=== PATIENT | female | born 1960 | race Caucasian/White ===

== ENCOUNTER 2019-03-30 17:02 | Emergency (ER) | payer OTHER ==
[2019-03-30 17:10] VITALS: BP 179/83; TEMP 97.9
[2019-03-30] MEDS: IPRATROPIUM-ALBUTEROL 3 ML NEB INHALATION STA (17:59)
[2019-03-30 18:01] VITALS: RESP 18
--- NOTE | 2019-03-30 18:05 | XR ---
EXAMINATION TYPE: XR chest 2V DATE OF EXAM: 03/30/2019 COMPARISON: NONE HISTORY: Cough and congestion TECHNIQUE: Frontal and lateral views of the chest are obtained. FINDINGS: Heart and mediastinum are normal. Lungs are clear. Diaphragm is normal. Bony thorax is nor mal. There are chest leads. IMPRESSION: Normal chest.
[2019-03-30 18:09] VITALS: PULSE 68
[2019-03-30] MEDS ORDERED: methylPREDNISolone SOD SUCCI 125 MG/2 ML VIAL IV STA (18:13)
[2019-03-30 18:28] LABS: Basophils # (A) 0.1 k/uL (0-0.2); Basophils % (A) 1 %; Eosinophils # (A) 0.2 k/uL (0-0.7); Eosinophils % (A) 1 %; HCT 47.6 % (34.0-46.0); HGB 15.4 gm/dL (11.4-16.0); Lymphocytes % (A) 15 %; MCH 33.4 pg (25.0-35.0); MCHC 32.5 g/dL (31.0-37.0); Macrocytosis Slight; Mean Platelet Volume 6.2; Monocytes # (A) 0.6 k/uL (0-1.0); Monocytes % (A) 5 %; Neutrophils # (A) 10.4 k/uL (1.3-7.7); Neutrophils % (A) 78 %; Platelet Count 307 k/uL (150-450); RBC 4.62 m/uL (3.80-5.40); RDW 13.8 % (11.5-15.5); WBC 13.3 k/uL (3.8-10.6)
[2019-03-30 18:35] LABS: ALT 26 U/L (9-52); AST 25 U/L (14-36); African American GFR (CKD) >90 (>60 ml/min/1.73 sqM); Alkaline Phosphatase 75 U/L (38-126); Anion Gap 7 mmol/L; Blood Urea Nitrogen 6 mg/dL (7-17); Calcium 9.3 mg/dL (8.4-10.2); Carbon Dioxide 30 mmol/L (22-30); Chloride 102 mmol/L (98-107); Glucose 103 mg/dL (74-99); Potassium 4.2 mmol/L (3.5-5.1); Sodium 139 mmol/L (137-145); Total Bilirubin 0.5 mg/dL (0.2-1.3); Total Protein 6.6 g/dL (6.3-8.2)
--- NOTE | 2019-03-30 18:37 | ED ---
General Adult HPI - General Chief complaint: Upper Respiratory Infection Stated complaint: Cough, SOB Time Seen by Provider: 03/30/19 17:13 Source: patient, family, RN notes reviewed, old records reviewed Mode of arrival: ambulatory Limitations: no limitations - History of Present Illness Initial comments: 59-year-old female patient presents to ED with chief complaint of cough congestion shortness of breath. Patient reports has been going on for approximately one month. Patient denies any chest pain. Reports that she does feel somewhat generalized weakness. Reports that she has a daily smoker. Denies any history of COPD. Denies any other complaints. Systemic: Pt denies fatigue, fever/chills, rash. Pt denies weakness, night sweat s, weight loss. Neuro: Pt denies headache, visual disturbances, syncope or pre-syncope. HEENT: Pt denies ocular discharge or irritation, otalgia, rhinorrhea, pharyngitis or notable lymphadenopathy. Cardiopulmonary: Pt denies chest pain, heart palpitations, dyspnea on exertion. Abdominal/GI: Pt denies abdominal pain, n/v/d. : Pt denies dysuria, burning w/ urination, frequency/urgency. Denies new onset urinary or bowel incontinence. MSK: Pt denies myalgia, loss of strength or function in extremities. Neuro: Pt denies new onset weakness, paresthesias. - Related Data Home Medications Medication Instructions Recorded Confirmed Carbidopa-Levodopa 25-100 mg 1 tab PO HS 07/25/14 07/31/14 [Sinemet 25-100 mg] Enalapril [Vasotec] 10 mg PO HS 07/25/14 07/31/14 Ranitidine HCl [Zantac] 75 mg PO HS PRN 07/25/14 07/31/14 Albuterol Inhaler [Ventolin Hfa 2 puff INHALATION Q6HR PRN 08/01/14 08/01/14 Inhaler] Previous Rx's Medication Instructions Recorded HYDROcodone/APAP 7.5-325MG [[place] 1 - 2 each PO Q4H PRN #90 tab 08/02/14 7.5-325] Warfarin [Coumadin] 2 tab PO DAILY #30 tab 08/02/14 Albuterol Inhaler [Ventolin Hfa 1 - 2 puff INHALATION Q4-6H PRN #1 03/30/19 Inhaler] inhaler Azithromycin [Zithromax Z-pack] 0 mg PO DIRECTED #6 tab 03/30/19 predniSONE 50 mg PO DAILY #4 tab 03/30/19 Allergies Allergy/AdvReac Type Severity Reaction Status Date / Time No Known Allergies Allergy Verified 03/30/19 17:10 Review of Systems ROS Statement: Those systems with pertinent positive or pertinent negative responses have been documented in the HPI. ROS Other: All systems not noted in ROS Statement are negative. Past Medical History Past Medical History: GERD/Reflux, Hypertension, Osteoarthritis (OA) Additional Past Medical History / Comment(s): HISTORY FROM DR. MURILLO STATES DIABETIC, PATIENT STATES "NOT". POSITIVE FOR LUPUS ANTICOAGULANT and double heterozygous for MTHFR gene mutation. History of Any Multi-Drug Resistant Organisms: None Reported Past Surgical History: Cholecystectomy, Hysterectomy, Orthopedic Surgery Additional Past Surgical History / Comment(s): BILATERAL EYE SURGERY (TIGHTENING OF MUSCLES). LEFT KNEE ARTHO Past Anesthesia/Blood Transfusion Reactions: Postoperative Nausea & Vomiting (PONV) Past Psychological History: No Psychological Hx Reported Smoking Status: Current every day smoker Past Alcohol Use History: None Reported Past Drug Use History: None Reported - Past Family History Mother Family Medical History: Diabetes Mellitus, Hypertension General Exam - General Exam Comments Initial Comments: Constitutional: NAD, AOX3, Pt has pleasant affect. HEENT: NC/AT, trachea midline, neck supple, no lymphadenopathy. Posterior pharynx non erythematous, without exudates. External ears appear normal, without discharge. Mucous membranes moist. Eyes PERRLA, EOM intact. There is no scleral icterus. No pallor noted. Cardiopulmonary: RRR, no murmurs, rubs or gallops, no JVD noted. Wheezing noted in anterior lung hdz, much improved after breathing treatment.. No peripheral edema. Abdominal exam: Abdomen soft and non-distended. Abdomen non-tender to palpation in all 4 quadrants. Bowel sounds active in LLQ. No hepatosplenomegaly. No ecchymosis Neuro: CN II-XII grossly intact. No nuchal rigidity. No raccon eyes, no laura sign, no hemotympanum. No cervical spinal tenderness. MSK: No posterior calf tenderness bilaterally, homans sign negative bilaterally. Posterior tibialis and radial pulse +2 bilaterally. Sensation intact in upper and lower extremities. Full active ROM in upper and lower extremities, 5/5 stregnth. Limitations: no limitations Course Vital Signs 03/30/19 03/30/19 03/30/19 17:08 18:00 18:09 Temperature 97.9 F Pulse Rate 79 74 68 Respiratory 22 18 18 Rate Blood Pressure 179/83 O2 Sat by Pulse 94 L Oximetry Medical Decision Making - Medical Decision Making 59-year-old female patient presents to ED with chief complaint of cough congestion shortness of breath. Patient reports has been going on for approximately one month. Patient denies any chest pain. Reports that she does feel somewhat generalized weakness. Reports that she has a daily smoker. Denies any history of COPD. Denies any other complaints. Patient will signs are stable, afebrile. Physical exam. Wheezing in anterior lung hdz. Breathing treatment improved wheezing considerably. Laboratory investigations revealed mild leukocytosis of 13.3. Otherwise nonpresent. D-dimer negative. Troponin negative. EKG nonischemic. She is experiencing bronchitis syndrome. Patient discharged with steroids and azithromycin Z-Mychal. Will follow up with primary care provider with close outpatient follow-up. Smoking cessation was discussed. Case discussed with Dr. Bowman. - Lab Data Result diagrams: 03/30/19 18:10 03/30/19 18:10 Lab Results 03/30/19 03/30/19 03/30/19 Range/Units 18:10 18:10 18:10 WBC 13.3 H (3.8-10.6) k/uL RBC 4.62 (3.80-5.40) m/uL Hgb 15.4 (11.4-16.0) gm/dL Hct 47.6 H (34.0-46.0) % MCV 103.0 H (80.0-100.0) fL MCH 33.4 (25.0-35.0) pg MCHC 32.5 (31.0-37.0) g/dL RDW 13.8 (11.5-15.5) % Plt Count 307 (150-450) k/uL Neutrophils % 78 % Lymphocytes % 15 % Monocytes % 5 % Eosinophils % 1 % Basophils % 1 % Neutrophils # 10.4 H (1.3-7.7) k/uL Lymphocytes # 2.0 (1.0-4.8) k/uL Monocytes # 0.6 (0-1.0) k/uL Eosinophils # 0.2 (0-0.7) k/uL Basophils # 0.1 (0-0.2) k/uL Macrocytosis Slight D-Dimer (<0.60) mg/L FEU Sodium 139 (137-145) mmol/L Potassium 4.2 (3.5-5.1) mmol/L Chloride 102 (98-107) mmol/L Carbon Dioxide 30 (22-30) mmol/L Anion Gap 7 mmol/L BUN 6 L (7-17) mg/dL Creatinine 0.46 L (0.52-1.04) mg/dL Est GFR (CKD-EPI)AfAm >90 (>60 ml/min/1.73 sqM) Est GFR (CKD-EPI)NonAf >90 (>60 ml/min/1.73 sqM) Glucose 103 H (74-99) mg/dL Plasma Lactic Acid [place] (0.7-2.0) mmol/L Calcium 9.3 (8.4-10.2) mg/dL Total Bilirubin 0.5 (0.2-1.3) mg/dL AST 25 (14-36) U/L ALT 26 (9-52) U/L Alkaline Phosphatase 75 (38-126) U/L Troponin I <0.012 (0.000-0.034) ng/mL Total Protein 6.6 (6.3-8.2) g/dL Albumin 4.0 (3.5-5.0) g/dL 03/30/19 03/30/19 Range/Units 18:10 18:10 WBC (3.8-10.6) k/uL RBC (3.80-5.40) m/uL Hgb (11.4-16.0) gm/dL Hct (34.0-46.0) % MCV (80.0-100.0) fL MCH (25.0-35.0) pg MCHC (31.0-37.0) g/dL RDW (11.5-15.5) % Plt Count (150-450) k/uL Neutrophils % % Lymphocytes % % Monocytes % % Eosinophils % % Basophils % % Neutrophils # (1.3-7.7) k/uL Lymphocytes # (1.0-4.8) k/uL Monocytes # (0-1.0) k/uL Eosinophils # (0-0.7) k/uL Basophils # (0-0.2) k/uL Macrocytosis D-Dimer 0.28 (<0.60) mg/L FEU Sodium (137-145) mmol/L Potassium (3.5-5.1) mmol/L Chloride (98-107) mmol/L Carbon Dioxide (22-30) mmol/L Anion Gap mmol/L BUN (7-17) mg/dL Creatinine (0.52-1.04) mg/dL Est GFR (CKD-EPI)AfAm (>60 ml/min/1.73 sqM) Est GFR (CKD-EPI)NonAf (>60 ml/min/1.73 sqM) Glucose (74-99) mg/dL Plasma Lactic Acid [place] 1.8 (0.7-2.0) mmol/L Calcium (8.4-10.2) mg/dL Total Bilirubin (0.2-1.3) mg/dL AST (14-36) U/L ALT (9-52) U/L Alkaline Phosphatase (38-126) U/L Troponin I (0.000-0.034) ng/mL Total Protein (6.3-8.2) g/dL Albumin (3.5-5.0) g/dL - EKG Data -: EKG Interpreted by Me (and Dr. Bowman) EKG Comments: Ventricular rate 74,. Full 116, QRS 84, QT/QTc 412 shows 47. Also some Robaxin, septal infarct agent determined. Here of abnormality consider anterior ischemia. Abnormal EKG. No concern for acute ischemia at this time. Disposition Clinical Impression: Bronchitis Disposition: HOME SELF-CARE Condition: Stable Instructions (If sedation given, give patient instructions): Acute Bronchitis (ED), How to Stop Smoking (ED) Additional Instructions: Follow-up with primary care provider tomorrow. Take medication as directed. Return to ER if condition worsens. Prescriptions: predniSONE 50 mg PO DAILY #4 tab Albuterol Inhaler [Ventolin Hfa Inhaler] 1 - 2 puff INHALATION Q4-6H PRN #1 inhaler PRN Reason: Cough Azithromycin [Zithromax Z-pack] 0 mg PO DIRECTED #6 tab Is patient prescribed a controlled substance at d/c from ED?: No Referrals: Frocillo,Rui, DO [Primary Care Provider] - 1-2 days
[2019-03-30] MEDS ORDERED: AZITHROMYCIN 500 MG TAB PO STA (19:24)
== END 2019-03-30 19:35 | disposition home or self-care (01) ==
LOC: EC 17:02
DX: J40 Bronchitis, not specified as acute or chronic (principal); R53.1 Weakness; F17.200 Nicotine dependence, unspecified, uncomplicated; Z71.6 Tobacco abuse counseling; Z79.899 Other long term (current) drug therapy
CPT/HCPCS: 36415; 94640; 93005; 85379; 80053; 83605; 84484; 85025; 71046; 96374; 99284; J2930

== ENCOUNTER 2019-07-04 18:39 | Emergency (ER) | payer OTHER ==
[2019-07-04 19:41] VITALS: RESP 18; TEMP 97.9
[2019-07-04] MEDS ORDERED: ONDANSETRON 4 MG/2 ML VIAL IVP STA (20:41)
[2019-07-04] MEDS ORDERED: SODIUM CHLORIDE 0.9% 500 ML 500 ML IV ONE (20:41)
[2019-07-04] MEDS ORDERED: SODIUM CHLORIDE 0.9% 1,000 ML IV ONE (20:41)
[2019-07-04] MEDS ORDERED: FAMOTIDINE 20 MG/2 ML VIAL IV STA (20:41)
--- NOTE | 2019-07-04 21:08 | XR ---
EXAMINATION TYPE: XR chest 2V DATE OF EXAM: 07/04/2019 COMPARISON: 03/30/2019 HISTORY: Cough TECHNIQUE: FINDINGS: Heart and mediastinum are normal. Lungs are clear of infiltrate. There are no hilar masses. Bony thorax is intact. Pulmonary vascularity is normal. IMPRESSION: No active cardiopulmonary disease. No change.
[2019-07-04 21:24] LABS: Basophils % (A) 0 %; Eosinophils % (A) 0 %; HCT 49.7 % (34.0-46.0); HGB 16.9 gm/dL (11.4-16.0); Lymphocytes # (A) 1.1 k/uL (1.0-4.8); Lymphocytes % (A) 9 %; MCH 32.4 pg (25.0-35.0); MCHC 33.9 g/dL (31.0-37.0); MCV 95.4 fL (80.0-100.0); Mean Platelet Volume 8.3; Monocytes # (A) 0.8 k/uL (0-1.0); Monocytes % (A) 6 %; Neutrophils # (A) 10.5 k/uL (1.3-7.7); Neutrophils % (A) 82 %; Platelet Count 191 k/uL (150-450); RBC 5.21 m/uL (3.80-5.40); RDW 13.7 % (11.5-15.5); WBC 12.8 k/uL (3.8-10.6)
[2019-07-04 21:31] LABS: ALT 21 U/L (4-34); AST 41 U/L (14-36); African American GFR (CKD) >90 (>60 ml/min/1.73 sqM); Albumin 3.9 g/dL (3.5-5.0); Alkaline Phosphatase 102 U/L (38-126); Amylase 43 U/L (30-110); Anion Gap 9 mmol/L; Appearance,Urine Cloudy (Clear); Bacteria,Urine Few /hpf; Blood Urea Nitrogen 20 mg/dL (7-17); Calcium 8.9 mg/dL (8.4-10.2); Carbon Dioxide 24 mmol/L (22-30); Chloride 99 mmol/L (98-107); Color,Urine Amber; Glucose 146 mg/dL (74-99); Mucus,Urine Many /hpf; Non-African American GFR(CKD) >90 (>60 ml/min/1.73 sqM); Potassium 3.6 mmol/L (3.5-5.1); RBC,Urine 8 /hpf (0-5); Sodium 132 mmol/L (137-145); Squamous Epithelial Cell,Urine 14 /hpf (0-4); Total Bilirubin 0.6 mg/dL (0.2-1.3); Total Protein 6.8 g/dL (6.3-8.2); WBC,Urine 31 /hpf (0-5)
[2019-07-04 21:32] LABS: Bilirubin,Urine 4+ (Negative); Blood,Urine Large (Negative); Glucose,Urine (UA) Negative (Negative); Ketones,Urine Negative (Negative); Leukocyte Esterase,Urine Small (Negative); Nitrite,Urine Negative (Negative); Protein,Urine 3+ (Negative)
[2019-07-04] MEDS ORDERED: cefTRIAXone IN SWFI 1,000 MG/10 ML SYRINGE IVP STA (21:57)
[2019-07-04 22:16] VITALS: BP 142/76; PULSE 106
[2019-07-04] MEDS ORDERED: ONDANSETRON 4 MG ODT STARTER PACK 2 TAB BTL PO STA (22:37)
--- NOTE | 2019-07-04 22:37 | ED ---
Nausea/Vomiting/Diarrhea HPI - General Chief complaint: Nausea/Vomiting/Diarrhea Stated complaint: vomiting/poss dehydration Time Seen by Provider: 07/04/19 20:14 Source: patient Mode of arrival: ambulatory Limitations: no limitations - History of Present Illness Initial comments: 59-year-old female patient presents to the emergency department today for evaluation of possible dehydration. Patient states that she's been sick for a little over a week with upper respiratory symptoms including cough and congestion. Patient did have fever and chills with the upper respiratory symptoms. She believes the fevers have resolved. States that 3 days ago she developed vomiting and diarrhea. Patient states that she's been unable to keep down any food or fluids for the last 3 days. Patient states today she feels wobbly and dizzy. States that she feels like she may be dehydrated. States she is having some dysuria. She is also reporting right flank pain. She denies any hematochezia, melena, hematemesis with her symptoms. Denies any significant ab dominal pain. Patient denies any recent rash, shortness breath, chest pain, back pain, numbness, tingling, dizziness, weakness, headache, visual changes, or any other complaints. - Related Data Home Medications Medication Instructions Recorded Confirmed Carbidopa-Levodopa 25-100 mg 1 tab PO HS 07/25/14 07/31/14 [Sinemet 25-100 mg] Enalapril [Vasotec] 10 mg PO HS 07/25/14 07/31/14 Ranitidine HCl [Zantac] 75 mg PO HS PRN 07/25/14 07/31/14 Albuterol Inhaler [Ventolin Hfa 2 puff INHALATION Q6HR PRN 08/01/14 08/01/14 Inhaler] Previous Rx's Medication Instructions Recorded HYDROcodone/APAP 7.5-325MG [[place] 1 - 2 each PO Q4H PRN #90 tab 08/02/14 7.5-325] Warfarin [Coumadin] 2 tab PO DAILY #30 tab 08/02/14 Albuterol Inhaler [Ventolin Hfa 1 - 2 puff INHALATION Q4-6H PRN #1 03/30/19 Inhaler] inhaler Azithromycin [Zithromax Z-pack] 0 mg PO DIRECTED #6 tab 03/30/19 predniSONE 50 mg PO DAILY #4 tab 03/30/19 Cephalexin [Keflex] 500 mg PO Q6HR #40 cap 07/04/19 Ondansetron [Zofran ODT] 4 mg PO Q8HR PRN #10 tab 07/04/19 Allergies Allergy/AdvReac Type Severity Reaction Status Date / Time No Known Allergies Allergy Verified 03/30/19 17:10 Review of Systems ROS Statement: Those systems with pertinent positive or pertinent negative responses have been documented in the HPI. ROS Other: All systems not noted in ROS Statement are negative. Past Medical History Past Medical History: GERD/Reflux, Hypertension, Osteoarthritis (OA) Additional Past Medical History / Comment(s): HISTORY FROM DR. MURILLO STATES DIABETIC, PATIENT STATES "NOT". POSITIVE FOR LUPUS ANTICOAGULANT and double heterozygous for MTHFR gene mutation. History of Any Multi-Drug Resistant Organisms: None Reported Past Surgical History: Cholecystectomy, Hysterectomy, Orthopedic Surgery Additional Past Surgical History / Comment(s): BILATERAL EYE SURGERY (TIGHTENING OF MUSCLES). LEFT KNEE ARTHO Past Anesthesia/Blood Transfusion Reactions: Postoperative Nausea & Vomiting (PONV) Past Psychological History: No Psychological Hx Reported Smoking Status: Current every day smoker Past Alcohol Use History: None Reported Past Drug Use History: None Reported - Past Family History Mother Family Medical History: Diabetes Mellitus, Hypertension General Exam Limitations: no limitations General appearance: alert, in no apparent distress, other (This is a well- developed, well-nourished adult female patient in no acute distress. Vital s igns upon presentation are temperature 97.9F, pulse 97, respirations 18, blood pressure 132/86, pulse ox 100% on room air.) Eye exam: Present: normal appearance, PERRL, EOMI. Absent: scleral icterus, conjunctival injection, periorbital swelling ENT exam: Present: normal exam, normal oropharynx, mucous membranes moist Respiratory exam: Present: normal lung sounds bilaterally. Absent: respiratory distress, wheezes, rales, rhonchi, stridor Cardiovascular Exam: Present: regular rate, normal rhythm, normal heart sounds. Absent: systolic murmur, diastolic murmur, rubs, gallop, clicks GI/Abdominal exam: Present: soft, normal bowel sounds. Absent: distended, tenderness, guarding, rebound, rigid Back exam: Present: normal inspection. Absent: CVA tenderness (R), CVA tenderness (L) Neurological exam: Present: alert, oriented X3, CN II-XII intact Psychiatric exam: Present: normal affect, normal mood Skin exam: Present: warm, dry, intact, normal color. Absent: rash Course Vital Signs 07/04/19 07/04/19 07/04/19 19:39 22:16 22:42 Temperature 97.9 F 97.9 F Pulse Rate 97 106 H 106 H Respiratory 18 18 18 Rate Blood Pressure 132/86 142/76 142/76 O2 Sat by Pulse 100 96 96 Oximetry Medical Decision Making - Medical Decision Making 59-year-old female patient presents to the emergency department today for evaluation of vomiting and diarrhea. Physical examination did reveal clear equal lung sounds. No respiratory distress. Abdomen was soft and nontender. Patient is afebrile. Vital signs showed no major abnormalities. Chest x-ray showed no acute cardiopulmonary process. Labs reviewed and did reveal positive influenza B results. Patient's bite blood cell count was elevated. Urinalysis was positive for infection. She'll be discharged home with prescription for Keflex and Zofran. She was given 1 dose of IV Rocephin here in the emergency department. She is instructed to follow-up with her primary care physician for recheck in 1-2 days. She is urged to have a repeat urinalysis performed. Return parameters were discussed in detail. She verbalizes understanding and agrees with this plan. - Lab Data Result diagrams: 07/04/19 21:02 07/04/19 21:02 Lab Results 07/04/19 07/04/19 07/04/19 Range/Units 20:50 21:02 21:02 WBC 12.8 H (3.8-10.6) k/uL RBC 5.21 (3.80-5.40) m/uL Hgb 16.9 H (11.4-16.0) gm/dL Hct 49.7 H (34.0-46.0) % MCV 95.4 (80.0-100.0) fL MCH 32.4 (25.0-35.0) pg MCHC 33.9 (31.0-37.0) g/dL RDW 13.7 (11.5-15.5) % Plt Count 191 (150-450) k/uL Neutrophils % 82 % Lymphocytes % 9 % Monocytes % 6 % Eosinophils % 0 % Basophils % 0 % Neutrophils # 10.5 H (1.3-7.7) k/uL Lymphocytes # 1.1 (1.0-4.8) k/uL Monocytes # 0.8 (0-1.0) k/uL Eosinophils # 0.0 (0-0.7) k/uL Basophils # 0.0 (0-0.2) k/uL Sodium 132 L (137-145) mmol/L Potassium 3.6 (3.5-5.1) mmol/L Chloride 99 (98-107) mmol/L Carbon Dioxide 24 (22-30) mmol/L Anion Gap 9 mmol/L BUN 20 H (7-17) mg/dL Creatinine 0.68 (0.52-1.04) mg/dL Est GFR (CKD-EPI)AfAm >90 (>60 ml/min/1.73 sqM) Est GFR (CKD-EPI)NonAf >90 (>60 ml/min/1.73 sqM) Glucose 146 H (74-99) mg/dL Calcium 8.9 (8.4-10.2) mg/dL Total Bilirubin 0.6 (0.2-1.3) mg/dL AST 41 H (14-36) U/L ALT 21 (4-34) U/L Alkaline Phosphatase 102 (38-126) U/L Total Protein 6.8 (6.3-8.2) g/dL Albumin 3.9 (3.5-5.0) g/dL Amylase 43 (30-110) U/L Lipase 74 (23-300) U/L Urine Color Urine Appearance (Clear) Urine pH (5.0-8.0) Ur Specific [place] (1.001-1.035) Urine Protein (Negative) Urine Glucose (UA) (Negative) Urine Ketones (Negative) Urine Blood (Negative) Urine Nitrite (Negative) Urine Bilirubin (Negative) Urine Urobilinogen (<2.0) mg/dL Ur Leukocyte Esterase (Negative) Urine RBC (0-5) /hpf Urine WBC (0-5) /hpf Urine WBC Clumps (None) /hpf Ur Squamous Epith Cells (0-4) /hpf Urine Bacteria (None) /hpf Urine Mucus (None) /hpf Influenza Type A RNA Not Detected (Not Detectd) Influenza Type B (PCR) Detected H (Not Detectd) 07/04/19 Range/Units 21:02 WBC (3.8-10.6) k/uL RBC (3.80-5.40) m/uL Hgb (11.4-16.0) gm/dL Hct (34.0-46.0) % MCV (80.0-100.0) fL MCH (25.0-35.0) pg MCHC (31.0-37.0) g/dL RDW (11.5-15.5) % Plt Count (150-450) k/uL Neutrophils % % Lymphocytes % % Monocytes % % Eosinophils % % Basophils % % Neutrophils # (1.3-7.7) k/uL Lymphocytes # (1.0-4.8) k/uL Monocytes # (0-1.0) k/uL Eosinophils # (0-0.7) k/uL Basophils # (0-0.2) k/uL Sodium (137-145) mmol/L Potassium (3.5-5.1) mmol/L Chloride (98-107) mmol/L Carbon Dioxide (22-30) mmol/L Anion Gap mmol/L BUN (7-17) mg/dL Creatinine (0.52-1.04) mg/dL Est GFR (CKD-EPI)AfAm (>60 ml/min/1.73 sqM) Est GFR (CKD-EPI)NonAf (>60 ml/min/1.73 sqM) Glucose (74-99) mg/dL Calcium (8.4-10.2) mg/dL Total Bilirubin (0.2-1.3) mg/dL AST (14-36) U/L ALT (4-34) U/L Alkaline Phosphatase (38-126) U/L Total Protein (6.3-8.2) g/dL Albumin (3.5-5.0) g/dL Amylase (30-110) U/L Lipase (23-300) U/L Urine Color [place] Urine Appearance Cloudy H (Clear) Urine pH 6.0 (5.0-8.0) Ur Specific [place] 1.020 (1.001-1.035) Urine Protein 3+ (Negative) Urine Glucose (UA) Negative (Negative) Urine Ketones Negative (Negative) Urine Blood Large H (Negative) Urine Nitrite Negative (Negative) Urine Bilirubin 4+ H (Negative) Urine Urobilinogen 8.0 (<2.0) mg/dL Ur Leukocyte Esterase Small (Negative) Urine RBC 8 H (0-5) /hpf Urine WBC 31 H (0-5) /hpf Urine WBC Clumps Few H (None) /hpf Ur Squamous Epith Cells 14 H (0-4) /hpf Urine Bacteria Few H (None) /hpf Urine Mucus Many H (None) /hpf Influenza Type A RNA (Not Detectd) Influenza Type B (PCR) (Not Detectd) - Radiology Data Radiology results: report reviewed, image reviewed Two-view x-ray of the chest is obtained. Report reviewed in its entirety. Impression by Dr. Martin shows no active cardiopulmonary disease. No change. Disposition Clinical Impression: Influenza B, Urinary tract infection Disposition: HOME SELF-CARE Condition: Good Instructions (If sedation given, give patient instructions): Urinary Tract Infection in Women (ED), Influenza (ED) Additional Instructions: Increase fluids. Complete antibiotic prescription in full. Follow up with her primary care physician for recheck in 1-2 days. Return to the emergency department for any new, worsening, or concerning symptoms. Prescriptions: Cephalexin [Keflex] 500 mg PO Q6HR #40 cap Ondansetron [Zofran ODT] 4 mg PO Q8HR PRN #10 tab PRN Reason: Nausea Is patient prescribed a controlled substance at d/c from ED?: No Referrals: Rui Baptiste DO [Primary Care Provider] - 1-2 days Time of Disposition: 22:36
== END 2019-07-04 22:53 | disposition home or self-care (01) ==
LOC: EC 18:39
DX: J10.1 Influenza due to other identified influenza virus with other respiratory manifestations (principal); N39.0 Urinary tract infection, site not specified; R42 Dizziness and giddiness; I10 Essential (primary) hypertension; K21.9 Gastro-esophageal reflux disease without esophagitis; F17.200 Nicotine dependence, unspecified, uncomplicated; Z79.899 Other long term (current) drug therapy; Z90.49 Acquired absence of other specified parts of digestive tract
CPT/HCPCS: 36415; 80053; 82150; 83690; 85025; 81001; 87086; 87502; 71046; 99284; 96374; 96375 ×2; 96361; J2405; J0696; S0119; 87077; 87186

== ENCOUNTER 2020-10-09 20:17 | Inpatient (IN) | payer OTHER ==
[2020-10-09] MEDS ORDERED: methylPREDNISolone SOD SUCCI 125 MG/2 ML VIAL IV STA (21:05)
[2020-10-09] MEDS ORDERED: SODIUM CHLORIDE 0.9% 500 ML 500 ML IV ONE (21:06)
--- NOTE | 2020-10-09 21:16 | XR ---
EXAMINATION TYPE: XR chest 1V portable DATE OF EXAM: 10/09/2020 COMPARISON: 07/04/2019 HISTORY: Body aches. Nausea. Cough. TECHNIQUE: Single view FINDINGS: Heart is normal. Lungs are clear of infiltrate. There is no heart failure. There are no hil ar masses. IMPRESSION: No active cardiopulmonary disease. Normal heart. No change.
[2020-10-09 21:26] LABS: Basophils % (A) 0 %; Eosinophils # (A) 0.2 k/uL (0-0.7); Eosinophils % (A) 1 %; HCT 47.8 % (34.0-46.0); HGB 16.1 gm/dL (11.4-16.0); Lymphocytes # (A) 0.6 k/uL (1.0-4.8); Lymphocytes % (A) 5 %; MCH 33.9 pg (25.0-35.0); MCHC 33.7 g/dL (31.0-37.0); MCV 100.6 fL (80.0-100.0); Mean Platelet Volume 7.3; Monocytes # (A) 0.5 k/uL (0-1.0); Monocytes % (A) 4 %; Neutrophils # (A) 10.4 k/uL (1.3-7.7); Neutrophils % (A) 89 %; Platelet Count 212 k/uL (150-450); RBC 4.76 m/uL (3.80-5.40); RDW 12.9 % (11.5-15.5); WBC 11.6 k/uL (3.8-10.6)
--- NOTE | 2020-10-09 21:27 | ED ---
General Adult HPI - General Chief complaint: Upper Respiratory Infection Stated complaint: cough,fever,headache Time Seen by Provider: 10/09/20 20:55 Source: patient, family, RN notes reviewed, old records reviewed Mode of arrival: wheelchair Limitations: no limitations - History of Present Illness Initial comments: 52-year-old female presenting for evaluation of cough dyspnea. Fever and myalgias. Patient has had some nausea as well. She does have history of COPD. Upon arrival patient is hypoxic at 89. She has not been vaccinated against coronavirus. Uncertain if she has come in contact with coronavirus. She denies central chest pain. Denies abdominal pain. - Related Data Home Medications Medication Instructions Recorded Confirmed Carbidopa-Levodopa 25-100 mg 1 tab PO HS 07/25/14 07/31/14 [Sinemet 25-100 mg] Enalapril [Vasotec] 10 mg PO HS 07/25/14 07/31/14 raNITIdine HCL [Zantac] 75 mg PO HS PRN 07/25/14 07/31/14 Albuterol Inhaler (Mhu) [Ventolin 2 puff INHALATION Q6HR PRN 08/01/14 08/01/14 Hfa Inhaler (Mhu)] Previous Rx's Medication Instructions Recorded HYDROcodone/APAP 7.5-325MG [[place] 1 - 2 each PO Q4H PRN #90 tab 08/02/14 7.5-325] Warfarin [Coumadin] 2 tab PO DAILY #30 tab 08/02/14 Albuterol Inhaler (Mhu) [Ventolin 1 - 2 puff INHALATION Q4-6H PRN #1 03/30/19 Hfa Inhaler (Mhu)] inhaler Azithromycin [Zithromax Z-pack (6 0 mg PO DIRECTED #6 tab 03/30/19 tabs)] predniSONE 50 mg PO DAILY #4 tab 03/30/19 Ondansetron [Zofran ODT] 4 mg PO Q8HR PRN #10 tab 07/04/19 cephALEXin [Keflex] 500 mg PO Q6HR #40 cap 07/04/19 Allergies Allergy/AdvReac Type Severity Reaction Status Date / Time No Known Allergies Allergy Verified 10/09/20 20:31 Review of Systems ROS Statement: Those systems with pertinent positive or pertinent negative responses have been documented in the HPI. ROS Other: All systems not noted in ROS Statement are negative. Past Medical History Past Medical History: GERD/Reflux, Hypertension, Osteoarthritis (OA) Additional Past Medical History / Comment(s): HISTORY FROM DR. MURILLO STATES DIABETIC, PATIENT STATES "NOT". POSITIVE FOR LUPUS ANTICOAGULANT and double heterozygous for MTHFR gene mutation. History of Any Multi-Drug Resistant Organisms: None Reported Past Surgical History: Cholecystectomy, Hysterectomy, Orthopedic Surgery Additional Past Surgical History / Comment(s): BILATERAL EYE SURGERY (TIGHTENING OF MUSCLES). LEFT KNEE ARTHO Past Anesthesia/Blood Transfusion Reactions: Postoperative Nausea & Vomiting (PONV) Past Psychological History: No Psychological Hx Reported Smoking Status: Current every day smoker Past Alcohol Use History: None Reported Past Drug Use History: None Reported - Past Family History Mother Family Medical History: Diabetes Mellitus, Hypertension General Exam Limitations: no limitations Course Vital Signs 10/09/20 10/09/20 10/09/20 20:24 20:40 22:31 Temperature 98.3 F Pulse Rate 117 H 111 H Respiratory 22 18 20 Rate Blood Pressure 161/82 149/102 O2 Sat by Pulse 89 L 86 L Oximetry Medical Decision Making - Medical Decision Making 60-year-old female with cough and dyspnea. Patient is initially hypoxic, started on steroids and albuterol. Chest x-ray negative for focal pneumonia, she has a mild leukocytosis, negative d-dimer, normal CMP, negative coronavirus. She continues to be hypoxic after initial treatment. She will be admitted for suspected COPD exacerbation. Patient will be admitted to Dr. Haas with pulmonology on consult - Lab Data Result diagrams: 10/09/20 21:13 10/09/20 21:13 Lab Results 10/09/20 10/09/20 10/09/20 Range/Units 21:13 21:13 21:13 WBC 11.6 H (3.8-10.6) k/uL RBC 4.76 (3.80-5.40) m/uL Hgb 16.1 H (11.4-16.0) gm/dL Hct 47.8 H (34.0-46.0) % MCV 100.6 H (80.0-100.0) fL MCH 33.9 (25.0-35.0) pg MCHC 33.7 (31.0-37.0) g/dL RDW 12.9 (11.5-15.5) % Plt Count 212 (150-450) k/uL MPV 7.3 Neutrophils % 89 % Lymphocytes % 5 % Monocytes % 4 % Eosinophils % 1 % Basophils % 0 % Neutrophils # 10.4 H (1.3-7.7) k/uL Lymphocytes # 0.6 L (1.0-4.8) k/uL Monocytes # 0.5 (0-1.0) k/uL Eosinophils # 0.2 (0-0.7) k/uL Basophils # 0.0 (0-0.2) k/uL PT (9.0-12.0) sec INR (<1.2) APTT (22.0-30.0) sec D-Dimer (<0.60) mg/L FEU Sodium 135 L (137-145) mmol/L Potassium 4.0 (3.5-5.1) mmol/L Chloride 100 (98-107) mmol/L Carbon Dioxide 30 (22-30) mmol/L Anion Gap 5 mmol/L BUN 8 (7-17) mg/dL Creatinine 0.54 (0.52-1.04) mg/dL Est GFR (CKD-EPI)AfAm >90 (>60 ml/min/1.73 sqM) Est GFR (CKD-EPI)NonAf >90 (>60 ml/min/1.73 sqM) Glucose 118 H (74-99) mg/dL Calcium 8.9 (8.4-10.2) mg/dL Magnesium 1.7 (1.6-2.3) mg/dL Total Bilirubin 0.5 (0.2-1.3) mg/dL AST 41 H (14-36) U/L ALT 35 H (4-34) U/L Alkaline Phosphatase 91 (38-126) U/L Total Protein 6.3 (6.3-8.2) g/dL Albumin 3.8 (3.5-5.0) g/dL Coronavirus (PCR) Not Detected (Not Detectd) 10/09/20 Range/Units 21:13 WBC (3.8-10.6) k/uL RBC (3.80-5.40) m/uL Hgb (11.4-16.0) gm/dL Hct (34.0-46.0) % MCV (80.0-100.0) fL MCH (25.0-35.0) pg MCHC (31.0-37.0) g/dL RDW (11.5-15.5) % Plt Count (150-450) k/uL MPV Neutrophils % % Lymphocytes % % Monocytes % % Eosinophils % % Basophils % % Neutrophils # (1.3-7.7) k/uL Lymphocytes # (1.0-4.8) k/uL Monocytes # (0-1.0) k/uL Eosinophils # (0-0.7) k/uL Basophils # (0-0.2) k/uL PT 12.0 (9.0-12.0) sec INR 1.1 (<1.2) APTT 26.7 (22.0-30.0) sec D-Dimer 0.26 (<0.60) mg/L FEU Sodium (137-145) mmol/L Potassium (3.5-5.1) mmol/L Chloride (98-107) mmol/L Carbon Dioxide (22-30) mmol/L Anion Gap mmol/L BUN (7-17) mg/dL Creatinine (0.52-1.04) mg/dL Est GFR (CKD-EPI)AfAm (>60 ml/min/1.73 sqM) Est GFR (CKD-EPI)NonAf (>60 ml/min/1.73 sqM) Glucose (74-99) mg/dL Calcium (8.4-10.2) mg/dL Magnesium (1.6-2.3) mg/dL Total Bilirubin (0.2-1.3) mg/dL AST (14-36) U/L ALT (4-34) U/L Alkaline Phosphatase (38-126) U/L Total Protein (6.3-8.2) g/dL Albumin (3.5-5.0) g/dL Coronavirus (PCR) (Not Detectd) Disposition Clinical Impression: COPD (chronic obstructive pulmonary disease) Disposition: ADMITTED IP TO THIS [facility] Condition: Stable Is patient prescribed a controlled substance at d/c from ED?: No Referrals: Rui Baptiste DO [Primary Care Provider] - 1-2 days Decision to Admit Reason: Admit from [facility] Decision Date: 10/09/20 Decision Time: 22:38
[2020-10-09 21:37] LABS: ALT 35 U/L (4-34); AST 41 U/L (14-36); African American GFR (CKD) >90 (>60 ml/min/1.73 sqM); Albumin 3.8 g/dL (3.5-5.0); Alkaline Phosphatase 91 U/L (38-126); Anion Gap 5 mmol/L; Blood Urea Nitrogen 8 mg/dL (7-17); Calcium 8.9 mg/dL (8.4-10.2); Carbon Dioxide 30 mmol/L (22-30); Chloride 100 mmol/L (98-107); Glucose 118 mg/dL (74-99); Magnesium 1.7 mg/dL (1.6-2.3); Non-African American GFR(CKD) >90 (>60 ml/min/1.73 sqM); Sodium 135 mmol/L (137-145); Total Bilirubin 0.5 mg/dL (0.2-1.3); Total Protein 6.3 g/dL (6.3-8.2)
[2020-10-09 21:40] LABS: D-Dimer 0.26 mg/L FEU (<0.60); INR 1.1 (<1.2); Partial Thromboplastin Time 26.7 sec (22.0-30.0)
[2020-10-09] MEDS: ALBUTEROL HFA INHALER INHALATION STA (21:58)
[2020-10-09] MEDS ORDERED: IPRATROPIUM-ALBUTEROL 3 ML NEB INHALATION PRN (22:34)
[2020-10-09] MEDS ORDERED: cefTRIAXone IN SWFI 1,000 MG/10 ML SYRINGE IVP ONE (22:35)
[2020-10-09] MEDS ORDERED: AZITHROMYCIN 500 MG in SODIUM CHLORIDE 0.9% 250 ML IVPB ONE (23:00)
[2020-10-10] MEDS: methylPREDNISolone SOD SUCCI 125 MG/2 ML VIAL IV SCH ×3 (01:42→14:20)
[2020-10-10] MEDS ORDERED: ALBUTEROL NEBULIZED 2.5 MG/3 ML INHALATION PRN (07:20)
[2020-10-10] MEDS: ALBUTEROL HFA INHALER INHALATION STA (07:43)
[2020-10-10] MEDS ORDERED: IPRATROPIUM-ALBUTEROL 3 ML NEB INHALATION SCH (08:00)
[2020-10-10] MEDS ORDERED: ALBUTEROL NEBULIZED 2.5 MG/3 ML INHALATION SCH (08:00)
[2020-10-10] MEDS ORDERED: WARFARIN 2.5 MG TAB PO SCH (09:00)
[2020-10-10] MEDS ORDERED: FORMOTEROL FUMARATE 20 MCG/2 ML NEBU INHALATION SCH (10:45)
[2020-10-10] MEDS ORDERED: BUDESONIDE 1 MG/2 ML NEBU INHALATION SCH (10:45)
[2020-10-10] MEDS ORDERED: ALBUTEROL HFA INHALER INHALATION PRN (11:12)
[2020-10-10] MEDS ORDERED: ALBUTEROL HFA INHALER INHALATION SCH (12:00)
[2020-10-10] MEDS: FORMOTEROL FUMARATE 20 MCG/2 ML NEBU INHALATION SCH ×2 (14:00→19:40)
[2020-10-10] MEDS: BUDESONIDE 1 MG/2 ML NEBU INHALATION SCH ×2 (14:00→19:40)
[2020-10-10] MEDS: IPRATROPIUM-ALBUTEROL 3 ML NEB INHALATION SCH ×4 (14:01→23:40)
[2020-10-10] MEDS: ENOXAPARIN 40 MG/0.4 ML SYRINGE SQ SCH (14:06)
[2020-10-10] MEDS: NICOTINE 21MG/24HR PATCH TRANSDERM SCH (14:06)
[2020-10-10] MEDS: guaiFENesin 600 MG TABLET.ER PO SCH ×3 (14:06→21:57)
[2020-10-10] MEDS: LISINOPRIL-HCTZ 10-12.5 MG 1 EACH TAB PO SCH ×2 (14:21→20:47)
--- NOTE | 2020-10-10 14:52 | P.CNPUL ---
History of Present Illness Consult date: 10/10/20 Reason for consult: dyspnea, cough, COPD Chief complaint: Shortness of breath cough and wheezing History of present illness: Patient is a pleasant 60-year-old female with extensive history of smoking and nicotine use 1-1-1/2 pack per day came into the hospital with increasing shortness of breath of several day duration by a however not worsened last 1 day with cough and thick tenacious sputum production she came into the hospital for further evaluation and intervention, her oxygen saturation was noted to be 89% she has declined colon vaccination, COVID-19 is negative, white cell count is elevated, chest x-ray COPD-like changes Review of Systems All systems: negative Past Medical History Past Medical History: Blood Disorder, COPD, GERD/Reflux, Hypertension, Osteoarthritis (OA), Pneumonia, Rheumatoid Arthritis (RA) Additional Past Medical History / Comment(s): Bronchitis, RA as a child now in remission, OA multiple joints, + for lupus anticoagulant and double heterozygous for MTHFR gene mutation. History of Any Multi-Drug Resistant Organisms: None Reported Past Surgical History: Cholecystectomy, Hysterectomy, Joint Replacement, Orthopedic Surgery Additional Past Surgical History / Comment(s): Total L hip arthroplasty, L knee arthroscopy, bilateral eye muscle tightening. Past Anesthesia/Blood Transfusion Reactions: Postoperative Nausea & Vomiting (PONV) Smoking Status: Current every day smoker - Past Family History Father Family Medical History: No Reported History Additional Family Medical History / Comment(s): Father is healthy Mother Family Medical History: Diabetes Mellitus, Hypertension Additional Family Medical History / Comment(s): Mother is . Medications and Allergies Home Medications Medication Instructions Recorded Confirmed Type Albuterol Nebulized [Ventolin 2.5 mg INHALATION RT-QID 10/09/20 10/09/20 History Nebulized] Fluticasone/Salmeterol [Advair 1 puff PO RT-BID 10/09/20 10/09/20 History 250-50 Diskus] Metoprolol Tartrate [Lopressor] 100 mg PO HS 10/09/20 10/09/20 History Montelukast Sodium [Singulair] 10 mg PO HS 10/09/20 10/09/20 History Allergies Allergy/AdvReac Type Severity Reaction Status Date / Time No Known Allergies Allergy Verified 10/09/20 22:47 Physical Exam Vitals: Vital Signs Temp Pulse Resp BP Pulse Ox 10/10/20 11:48 97 F L 94 18 144/78 95 10/10/20 05:00 98.1 F 95 18 142/84 98 10/10/20 01:48 98.1 F 95 18 131/86 96 10/09/20 22:31 111 H 20 149/102 86 L 10/09/20 20:40 18 10/09/20 20:24 98.3 F 117 H 22 161/82 89 L Intake and Output 10/09/20 10/10/20 10/10/20 22:59 06:59 14:59 Other: Weight 70.307 kg 70.307 kg - Constitutional General appearance: average body habitus, cooperative, disheveled - EENT Eyes: EOMI, PERRLA, poor dentition Ears: bilateral: normal - Neck Carotids: bilateral: upstroke normal - Respiratory Respiratory: bilateral: diminished, wheezing (Bilateral predominantly expiratory) - Cardiovascular Rhythm: regular Heart sounds: normal: S1, S2 - Gastrointestinal General gastrointestinal: decreased bowel sounds, soft - Integumentary Integumentary: normal turgor - Neurologic Neurologic: CNII-XII intact - Musculoskeletal Musculoskeletal: gait normal, generalized weakness, strength equal bilaterally - Psychiatric Psychiatric: A&O x's 3, appropriate affect, intact judgment & insight Results - Laboratory Findings CBC and BMP: 10/09/20 21:13 10/09/20 21:13 PT/INR, D-dimer PT 12.0 sec (9.0-12.0) 10/09/20 21:13 INR 1.1 (<1.2) 10/09/20 21:13 D-Dimer 0.26 mg/L FEU (<0.60) 10/09/20 21:13 Abnormal lab findings: Abnormal Labs 10/09/20 10/09/20 21:13 21:13 WBC 11.6 H Hgb 16.1 H Hct 47.8 H MCV 100.6 H Neutrophils # 10.4 H Lymphocytes # 0.6 L Sodium 135 L Glucose 118 H AST 41 H ALT 35 H - Diagnostic Findings Chest x-ray: report reviewed, image reviewed (Finding as noted above) Assessment and Plan Assessment: Acute exacerbation of severe COPD Acute hypoxic respiratory failure Hypertension hypertensive cardiovascular disease History of smoking and nicotine abuse Plan: IV steroids Supplemental oxygen Bronchodilator Deep breathing exercises incentive spirometry Smoking cessation counseling and education provided Time with Patient: Greater than 30
[2020-10-10] MEDS: methylPREDNISolone SOD SUCCI 40 MG/ML 1 ML VIAL IV SCH (14:55)
--- NOTE | 2020-10-10 17:43 | P.HPIM ---
History of Present Illness H&P Date: 10/10/20 Chief Complaint: Goals shortness of breath History of presenting complaint: This is a pleasant 60-year-old patient of . Chronic stable medical conditions include GERD, hypertension, [place] arthritis. Long-standing smoker. Patient presents with symptoms for 3-4 days of some fever and cough body aches clear sputum wheezing. Tired rundown. She was concerned about COVID and decided to come in. She has been wheezing. Some decrease in appetite. Patient has not had vaccine for the COVID. Review of systems: GEN.: Tired low-grade fever EYES: None HEENT: None NECK: None RESPIRATORY: [As above CARDIOVASCULAR: None GASTROINTESTINAL: None GENITOURINARY: Urine stress incontinence MUSCULOSKELETAL: Joint pains LYMPHATICS: None HEMATOLOGICAL: None PSYCHIATRY: None NEUROLOGICAL: None Past medical history to include: GERD, hypertension, osteoarthritis, Social history: Lives with her ,daughter. son and 3 grandchildren. Smokes a pack a day for over 36 years. No alcohol Physical examination: VITAL SIGNS: 98.3, 117, 22, 161/82, 89% on room air-upon presentation GENERAL: BMI 24.3, sitting up, slightly short of breath. EYES: Pupils equal. Conjunctiva normal. HEENT: External appearance of nose and ears normal, oral cavity grossly normal. NECK: JVD not raised; masses not palpable. HEART: First and second heart sounds are normal; no edema. LUNGS: Respiratory rate increased, diminished breath sounds prolonged expiration and wheezing. ABDOMEN: Soft, nontender, liver spleen not palpable, no masses palpable. PSYCH: Alert and oriented x3; mood and affect anxiousl. MUSCULAR skeletal: Evidence of OA in several joints NEUROLOGICAL: Cranial nerves grossly intact; no facial asymmetry, power and sensation grossly intact. LYMPHATICS: No lymph nodes palpable in the axilla and neck INVESTIGATIONS, reviewed in the clinical context: WBC 11.6 hemoglobin 16.1 platelets 212 potassium 4 creatinine 0.5 for AST 41 ALT 35 Coronavirus [PCF]-not detected Chest x-ray film personally reviewed by me-hyperinflated, prominent pulmonary artery, a gestational prominence Assessment and plan: -Acute COPD exacerbation in a current smoker Add DuoNeb, inhaled steroids, IV steroids, long-acting beta agonist. -Chronic nicotine dependence, Randee smoker Nicotine patch -Essential hypertension Increase Zestoretic to 10/12.5 twice a day. Stop beta yvonne -Chronic urinary stress incontinence -Smoke cessation counseling: This was done with the patient. Nicotine patch is being given. More than 3 minutes was spent for this Care was discussed with the patient. Questions answered. Increase activity as tolerated. Past Medical History Past Medical History: GERD/Reflux, Hypertension, Osteoarthritis (OA) Additional Past Medical History / Comment(s): HISTORY FROM DR. MURILLO STATES DIABETIC, PATIENT STATES "NOT". POSITIVE FOR LUPUS ANTICOAGULANT and double heterozygous for MTHFR gene mutation. History of Any Multi-Drug Resistant Organisms: None Reported Past Surgical History: Cholecystectomy, Hysterectomy, Orthopedic Surgery Additional Past Surgical History / Comment(s): BILATERAL EYE SURGERY (TIGHTENING OF MUSCLES). LEFT KNEE ARTHO Past Anesthesia/Blood Transfusion Reactions: Postoperative Nausea & Vomiting (PONV) Past Psychological History: No Psychological Hx Reported Smoking Status: Current every day smoker Past Alcohol Use History: None Reported Past Drug Use History: None Reported - Past Family History Mother Family Medical History: Diabetes Mellitus, Hypertension Father Family Medical History: No Reported History Additional Family Medical History / Comment(s): Father is healthy Medications and Allergies Home Medications Medication Instructions Recorded Confirmed Type Albuterol Nebulized [Ventolin 2.5 mg INHALATION RT-QID 10/09/20 10/09/20 History Nebulized] Fluticasone/Salmeterol [Advair 1 puff PO RT-BID 10/09/20 10/09/20 History 250-50 Diskus] Metoprolol Tartrate [Lopressor] 100 mg PO HS 10/09/20 10/09/20 History Montelukast Sodium [Singulair] 10 mg PO HS 10/09/20 10/09/20 History Allergies Allergy/AdvReac Type Severity Reaction Status Date / Time No Known Allergies Allergy Verified 10/09/20 22:47 Physical Exam Vitals: Vital Signs Temp Pulse Resp BP Pulse Ox 10/10/20 05:00 98.1 F 95 18 142/84 98 10/10/20 01:48 98.1 F 95 18 131/86 96 10/09/20 22:31 111 H 20 149/102 86 L 10/09/20 20:40 18 10/09/20 20:24 98.3 F 117 H 22 161/82 89 L Intake and Output 10/09/20 10/10/20 10/10/20 22:59 06:59 14:59 Other: Weight 70.307 kg Results CBC & Chem 7: 10/09/20 21:13 10/09/20 21:13 Labs: Abnormal Lab Results - Last 24 Hours (Table) 10/09/20 10/09/20 Range/Units 21:13 21:13 WBC 11.6 H (3.8-10.6) k/uL Hgb 16.1 H (11.4-16.0) gm/dL Hct 47.8 H (34.0-46.0) % MCV 100.6 H (80.0-100.0) fL Neutrophils # 10.4 H (1.3-7.7) k/uL Lymphocytes # 0.6 L (1.0-4.8) k/uL Sodium 135 L (137-145) mmol/L Glucose 118 H (74-99) mg/dL AST 41 H (14-36) U/L ALT 35 H (4-34) U/L
[2020-10-10] MEDS ORDERED: SYMBICORT 160-4.5 MCG INHALER INHALATION SCH (20:00)
[2020-10-10] MEDS ORDERED: METOPROLOL TARTRATE 50 MG TAB PO SCH (21:00)
[2020-10-10] MEDS ORDERED: lisinopriL 10 MG TAB PO SCH (21:00)
[2020-10-10] MEDS ORDERED: MONTELUKAST 10 MG TAB PO SCH (21:00)
[2020-10-11] MEDS: methylPREDNISolone SOD SUCCI 40 MG/ML 1 ML VIAL IV SCH ×2 (00:08→08:58)
[2020-10-11] MEDS: IPRATROPIUM-ALBUTEROL 3 ML NEB INHALATION SCH ×3 (04:00→11:52)
[2020-10-11 07:34] VITALS: BP 123/74; RESP 17; TEMP 97.4
[2020-10-11] MEDS: FORMOTEROL FUMARATE 20 MCG/2 ML NEBU INHALATION SCH (08:05)
[2020-10-11] MEDS: BUDESONIDE 1 MG/2 ML NEBU INHALATION SCH (08:05)
[2020-10-11] MEDS: NICOTINE 21MG/24HR PATCH TRANSDERM SCH (08:58)
[2020-10-11] MEDS: LISINOPRIL-HCTZ 10-12.5 MG 1 EACH TAB PO SCH (08:59)
[2020-10-11] MEDS: guaiFENesin 600 MG TABLET.ER PO SCH ×2 (08:59→13:19)
[2020-10-11] MEDS: ENOXAPARIN 40 MG/0.4 ML SYRINGE SQ SCH (08:59)
--- NOTE | 2020-10-11 10:57 | P.PN ---
Subjective Progress Note Date: 10/11/20 Principal diagnosis: Acute exacerbation of severe COPD Acute hypoxic respiratory failure Hypertension hypertensive cardiovascular disease History of smoking and nicotine abuse 10/11/2020, patient seen eval examined labs reviewed medications reviewed ongoing shortness of breath still present however patient feels that she is almost back to baseline, denies any chest pain still left cough wheezing or shortness of breath, patient is currently on 3 L oxygen, would recommend to titrated down patient has been insisting on going home Patient is a pleasant 60-year-old female with extensive history of smoking and nicotine use 1-1-1/2 pack per day came into the hospital with increasing shortness of breath of several day duration by a however not worsened last 1 day with cough and thick tenacious sputum production she came into the hospital for further evaluation and intervention, her oxygen saturation was noted to be 89% she has declined colon vaccination, COVID-19 is negative, white cell count is elevated, chest x-ray COPD-like changes Objective - Vital Signs Vital signs: Vital Signs Temp 97.4 F L 10/11/20 07:16 Pulse 96 10/11/20 08:28 Resp 17 10/11/20 07:16 BP 123/74 10/11/20 07:16 Pulse Ox 98 10/11/20 07:16 Intake & Output 10/10/20 10/11/20 10/11/20 18:59 06:59 18:59 Weight 70.307 kg Other: Voiding Method Toilet # Voids 2 2 - Exam - Constitutional General appearance: average body habitus, cooperative, disheveled - EENT Eyes: EOMI, PERRLA, poor dentition Ears: bilateral: normal - Neck Carotids: bilateral: upstroke normal - Respiratory Respiratory: bilateral: diminished, wheezing (Bilateral predominantly expiratory) - Cardiovascular Rhythm: regular Heart sounds: normal: S1, S2 - Gastrointestinal General gastrointestinal: decreased bowel sounds, soft - Integumentary Integumentary: normal turgor - Neurologic Neurologic: CNII-XII intact - Musculoskeletal Musculoskeletal: gait normal, generalized weakness, strength equal bilaterally - Psychiatric Psychiatric: A&O x's 3, appropriate affect, intact judgment & insight - Labs CBC & Chem 7: 10/09/20 21:13 10/09/20 21:13 Assessment and Plan Assessment: Acute exacerbation of severe COPD Acute hypoxic respiratory failure Hypertension hypertensive cardiovascular disease History of smoking and nicotine abuse Plan: IV steroids Supplemental oxygen Bronchodilator Deep breathing exercises incentive spirometry Smoking cessation counseling and education provided Time with Patient: Greater than 30
[2020-10-11 12:47] VITALS: PULSE 127
--- NOTE | 2020-10-11 17:09 | P.DS ---
Providers Date of admission: 10/09/20 22:34 Expected date of discharge: 10/11/20 Attending physician: Rubens Haas Consults: 10/09/20 22:34 Consult Physician Routine Consulting Provider: Alphonse Ferrera Consult Reason/Comments: COPD Do you want consulting provider notified?: Already Contacted Primary care physician: Rui Baptiste [facility] Course: Chief Complaint: Goals shortness of breath History of presenting complaint: This is a pleasant 60-year-old patient of . Chronic stable medical conditions include GERD, hypertension, [place] arthritis. Long-standing smoker. Patient presents with symptoms for 3-4 days of some fever and cough body aches clear sputum wheezing. Tired rundown. She was concerned about COVID and decided to come in. She has been wheezing. Some decrease in appetite. Patient has not had vaccine for the COVID. Admitted with acute COPD exacerbation. Started on bronchodilators, steroids. Today: Patient very anxious to go home. Has to take care of her granddaughter with insulin-dependent diabetes. Breathing is better. Still has some cough. Decrease wheezing. Has been up to the bathroom. Patient's medications were adjusted. Smoking cessation was again discussed. Discussion and discharge planning more than 35 minutes Consultation: Dr. Natalie Ferrera from pulmonary Past medical history to include: GERD, hypertension, osteoarthritis, Social history: Lives with her ,daughter. son and 3 grandchildren. Smokes a pack a day for over 36 years. No alcohol Physical examination: VITAL SIGNS: 97.4, 92, 17, 123/74, 98% on 3 L GENERAL: Sitting on bed, breathing much better EYES: Pupils equal. Conjunctiva normal. NECK: JVD not raised; masses not palpable. HEART: First and second heart sounds are normal; no edema. LUNGS: Respiratory rate increased, diminished breath sounds ABDOMEN: Soft, nontender, liver spleen not palpable, no masses palpable. PSYCH: Alert and oriented x3; mood and affect anxiousl. MUSCULAR skeletal: Evidence of OA in several joints INVESTIGATIONS, reviewed in the clinical context: WBC 11.6 hemoglobin 16.1 platelets 212 potassium 4 creatinine 0.5 for AST 41 ALT 35 Coronavirus [PCF]-not detected Chest x-ray film personally reviewed by me-hyperinflated, prominent pulmonary artery, a gestational prominence Assessment and plan: -Acute COPD exacerbation in a current smoker-improved Patient be discharged on DuoNeb, tapering steroids and continue with Symbicort -Chronic nicotine dependence, Randee smoker Nicotine patch -Essential hypertension Zestoretic to 10/12.5 twice a day. Stop beta yvonne -Chronic urinary stress incontinence Disposition: Home Patient Condition at Discharge: Stable Plan - Discharge Summary Discharge Rx Participant: No New Discharge Prescriptions: New Nicotine 21Mg/24Hr Patch [Habitrol] 1 patch TRANSDERM DAILY #30 patch predniSONE 10 mg PO DAILY #30 tab Lisinopril-Hctz 20-12.5 mg [Zestoretic 20-12.5] 1 tab PO HS #30 tab Ipratropium-Albuterol Nebulize [Duoneb 0.5 mg-3 mg/3 ml Soln] 3 ml INHALATION TID #90 ml Continue Montelukast Sodium [Singulair] 10 mg PO HS Fluticasone/Salmeterol [Advair 250-50 Diskus] 1 puff PO RT-BID Discontinued Metoprolol Tartrate [Lopressor] 100 mg PO HS Albuterol Nebulized [Ventolin Nebulized] 2.5 mg INHALATION RT-QID Discharge Medication List Fluticasone/Salmeterol [Advair 250-50 Diskus] 1 puff PO RT-BID 10/09/20 [History] Montelukast Sodium [Singulair] 10 mg PO HS 10/09/20 [History] Ipratropium-Albuterol Nebulize [Duoneb 0.5 mg-3 mg/3 ml Soln] 3 ml INHALATION TID #90 ml 10/11/20 [Rx] Lisinopril-Hctz 20-12.5 mg [Zestoretic 20-12.5] 1 tab PO HS #30 tab 10/11/20 [Rx] Nicotine 21Mg/24Hr Patch [Habitrol] 1 patch TRANSDERM DAILY #30 patch 10/11/20 [Rx] predniSONE 10 mg PO DAILY #30 tab 10/11/20 [Rx] Follow up Appointment(s)/Referral(s): Rui Baptiste DO [Primary Care Provider] - 10/15/20 10:45 am [facility],Equipment [NON-STAFF] - (Please call [facility] once home to arrange delivery of oxygen concentrator. ) Patient Instructions/Handouts: COPD (Chronic Obstructive Pulmonary Disease) (DC) Activity/Diet/Wound Care/Special Instructions: pt has a nebulizer at home Patient needs home oxygen to manage her COPD.
== END 2020-10-11 15:07 | disposition home or self-care (01) | DRG 191 ==
LOC: EC 20:17 → 4SSUR 22:34
PROVIDERS: ADMIT Hospitalist; ATTEND Hospitalist
DX: J44.1 Chronic obstructive pulmonary disease with (acute) exacerbation (principal); E72.12 Methylenetetrahydrofolate reductase deficiency; D68.62 Lupus anticoagulant syndrome; R09.02 Hypoxemia; Z15.89 Genetic susceptibility to other disease; I10 Essential (primary) hypertension; K21.9 Gastro-esophageal reflux disease without esophagitis; M19.90 Unspecified osteoarthritis, unspecified site; Z90.49 Acquired absence of other specified parts of digestive tract; Z90.710 Acquired absence of both cervix and uterus; Z98.890 Other specified postprocedural states; Z79.899 Other long term (current) drug therapy; Z82.49 Family history of ischemic heart disease and other diseases of the circulatory system; Z83.3 Family history of diabetes mellitus; Z20.822 Contact with and (suspected) exposure to COVID-19; F17.210 Nicotine dependence, cigarettes, uncomplicated; I11.9 Hypertensive heart disease without heart failure; M06.9 Rheumatoid arthritis, unspecified; N39.3 Stress incontinence (female) (male); Z96.642 Presence of left artificial hip joint
CPT/HCPCS: 36415; 71045; 80053; 83735; 85025; 85379; 85610; 85730; 87635; 94640; 96374; 99285

== ENCOUNTER 2021-02-10 09:03 | Inpatient (IN) | payer OTHER ==
[2021-02-10] MEDS ORDERED: SODIUM CHLORIDE 0.9% 500 ML 500 ML IV STA (09:19)
[2021-02-10] MEDS ORDERED: SODIUM CHLORIDE 0.9% 1,000 ML IV STA (09:19)
[2021-02-10] MEDS ORDERED: ONDANSETRON 4 MG/2 ML VIAL IVP STA (09:19)
--- NOTE | 2021-02-10 09:37 | ED ---
Weakness HPI - General Chief complaint: Weakness Stated complaint: fever, body aches Time Seen by Provider: 02/10/21 09:12 Source: patient, RN notes reviewed Mode of arrival: wheelchair Limitations: no limitations - History of Present Illness Initial comments: This is a 60-year-old female presents emergency Department chief complaint of generalized weakness. Patient has been sick since Wednesday she states everyone in her family is sick with similar symptoms. She admits to cough congestion bodyaches fevers last week. Patient states she's had nausea, diarrhea she's had decreased oral intake she's not felt well. states she feels dehydrated no chest pain she does have known COPD currently seeing pulmonology. - Related Data Home Medications Medication Instructions Recorded Confirmed Fluticasone/Salmeterol [Advair 1 puff PO RT-BID 10/09/20 02/10/21 250-50 Diskus] Montelukast Sodium [Singulair] 10 mg PO HS 10/09/20 02/10/21 Previous Rx's Medication Instructions Recorded Lisinopril-Hctz 20-12.5 mg 1 tab PO HS #30 tab 10/11/20 [Zestoretic 20-12.5] Allergies Allergy/AdvReac Type Severity Reaction Status Date / Time No Known Allergies Allergy Verified 02/10/21 10:26 Review of Systems ROS Statement: Those systems with pertinent positive or pertinent negative responses have been documented in the HPI. ROS Other: All systems not noted in ROS Statement are negative. Past Medical History Past Medical History: GERD/Reflux, Hypertension, Osteoarthritis (OA) Additional Past Medical History / Comment(s): DIABETIC, PATIENT STATES "NOT". POSITIVE FOR LUPUS ANTICOAGULANT and double heterozygous for MTHFR gene mutation. History of Any Multi-Drug Resistant Organisms: None Reported Past Surgical History: Cholecystectomy, Hysterectomy, Orthopedic Surgery Additional Past Surgical History / Comment(s): BILATERAL EYE SURGERY (TIGHTENING OF MUSCLES). LEFT KNEE ARTHO Past Anesthesia/Blood Transfusion Reactions: Postoperative Nausea & Vomiting (PONV) Past Psychological History: No Psychological Hx Reported Smoking Status: Former smoker Past Alcohol Use History: None Reported Past Drug Use History: None Reported - Past Family History Father Family Medical History: No Reported History Additional Family Medical History / Comment(s): Father is healthy Mother Family Medical History: Diabetes Mellitus, Hypertension General Exam Limitations: no limitations General appearance: alert, in no apparent distress Head exam: Present: atraumatic, normocephalic, normal inspection Eye exam: Present: normal appearance, PERRL, EOMI. Absent: scleral icterus, conjunctival injection, periorbital swelling ENT exam: Present: normal oropharynx, mucous membranes dry. Absent: normal exam, mucous membranes moist Neck exam: Present: normal inspection, full ROM. Absent: tenderness, meningismus, lymphadenopathy Respiratory exam: Present: wheezes. Absent: normal lung sounds bilaterally, respiratory distress, rales, rhonchi, stridor Cardiovascular Exam: Present: normal rhythm, tachycardia, normal heart sounds. Absent: systolic murmur, diastolic murmur, rubs, gallop, clicks GI/Abdominal exam: Present: soft, normal bowel sounds. Absent: distended, tenderness, guarding, rebound, rigid Course Vital Signs 02/10/21 09:04 Temperature 97.8 F Pulse Rate 115 H Respiratory 18 Rate Blood Pressure 88/54 O2 Sat by Pulse 95 Oximetry EKG Findings - EKG Comments: EKG Findings:: EKG fontanelle 9:18 sinus tachycardia with PACs noted, rate of 1:15 SC 114 QRS 82 QT/QTC 312/431 Medical Decision Making - Medical Decision Making 60-year-old female presented for generalized weakness, cough and congestion she has COVID-19 positive that she found to be in acute renal failure with a GFR of 19, creatinine 2.27 patient be admitted for IV hydration, nephrology evaluation, pulmonary evaluation. - Lab Data Result diagrams: 02/10/21 09:58 02/10/21 09:58 Lab Results 02/10/21 02/10/21 02/10/21 Range/Units 09:58 09:58 09:58 WBC 8.5 (3.8-10.6) k/uL RBC 4.51 (3.80-5.40) m/uL Hgb 14.5 (11.4-16.0) gm/dL Hct 44.0 (34.0-46.0) % MCV 97.6 (80.0-100.0) fL MCH 32.1 (25.0-35.0) pg MCHC 32.9 (31.0-37.0) g/dL RDW 12.5 (11.5-15.5) % Plt Count 180 (150-450) k/uL MPV 8.4 Neutrophils % 88 % Lymphocytes % 7 % Monocytes % 3 % Eosinophils % 0 % Basophils % 0 % Neutrophils # 7.4 (1.3-7.7) k/uL Lymphocytes # 0.6 L (1.0-4.8) k/uL Monocytes # 0.3 (0-1.0) k/uL Eosinophils # 0.0 (0-0.7) k/uL Basophils # 0.0 (0-0.2) k/uL Sodium 132 L (137-145) mmol/L Potassium 3.9 (3.5-5.1) mmol/L Chloride 101 (98-107) mmol/L Carbon Dioxide 16 L (22-30) mmol/L Anion Gap 15 mmol/L BUN 64 H (7-17) mg/dL Creatinine 2.70 H (0.52-1.04) mg/dL Est GFR (CKD-EPI)AfAm 22 (>60 ml/min/1.73 sqM) Est GFR (CKD-EPI)NonAf 19 (>60 ml/min/1.73 sqM) Glucose 138 H (74-99) mg/dL Plasma Lactic Acid Tayo 1.0 (0.7-2.0) mmol/L Calcium 8.4 (8.4-10.2) mg/dL Total Bilirubin 0.4 (0.2-1.3) mg/dL AST 89 H (14-36) U/L ALT 68 H (4-34) U/L Alkaline Phosphatase 77 (38-126) U/L Total Protein 7.2 (6.3-8.2) g/dL Albumin 4.1 (3.5-5.0) g/dL Coronavirus (PCR) (Not Detectd) 02/10/21 Range/Units 09:58 WBC (3.8-10.6) k/uL RBC (3.80-5.40) m/uL Hgb (11.4-16.0) gm/dL Hct (34.0-46.0) % MCV (80.0-100.0) fL MCH (25.0-35.0) pg MCHC (31.0-37.0) g/dL RDW (11.5-15.5) % Plt Count (150-450) k/uL MPV Neutrophils % % Lymphocytes % % Monocytes % % Eosinophils % % Basophils % % Neutrophils # (1.3-7.7) k/uL Lymphocytes # (1.0-4.8) k/uL Monocytes # (0-1.0) k/uL Eosinophils # (0-0.7) k/uL Basophils # (0-0.2) k/uL Sodium (137-145) mmol/L Potassium (3.5-5.1) mmol/L Chloride (98-107) mmol/L Carbon Dioxide (22-30) mmol/L Anion Gap mmol/L BUN (7-17) mg/dL Creatinine (0.52-1.04) mg/dL Est GFR (CKD-EPI)AfAm (>60 ml/min/1.73 sqM) Est GFR (CKD-EPI)NonAf (>60 ml/min/1.73 sqM) Glucose (74-99) mg/dL Plasma Lactic Acid Tayo (0.7-2.0) mmol/L Calcium (8.4-10.2) mg/dL Total Bilirubin (0.2-1.3) mg/dL AST (14-36) U/L ALT (4-34) U/L Alkaline Phosphatase (38-126) U/L Total Protein (6.3-8.2) g/dL Albumin (3.5-5.0) g/dL Coronavirus (PCR) Detected A (Not Detectd) Disposition Clinical Impression: COPD (chronic obstructive pulmonary disease), COVID-19, Acute kidney injury, D ehydration Disposition: ADMITTED IP TO THIS HOSP Condition: Fair Referrals: Rui Baptiste DO [Primary Care Provider] - 1-2 days
--- NOTE | 2021-02-10 10:20 | XR ---
EXAMINATION TYPE: XR chest 2V DATE OF EXAM: 02/10/2021 COMPARISON: 10/09/2020 INDICATION: Weakness fever cough TECHNIQUE: Frontal and lateral views of the chest are obtained. FINDINGS: The heart size is normal. The pulmonary vasculature is normal. The lungs are clear. IMPRESSION: 1. No acute pulmonary process.
[2021-02-10 10:24] LABS: Basophils % (A) 0 %; Eosinophils % (A) 0 %; HGB 14.5 gm/dL (11.4-16.0); Lymphocytes # (A) 0.6 k/uL (1.0-4.8); Lymphocytes % (A) 7 %; MCH 32.1 pg (25.0-35.0); MCHC 32.9 g/dL (31.0-37.0); MCV 97.6 fL (80.0-100.0); Mean Platelet Volume 8.4; Monocytes # (A) 0.3 k/uL (0-1.0); Monocytes % (A) 3 %; Neutrophils # (A) 7.4 k/uL (1.3-7.7); Neutrophils % (A) 88 %; Platelet Count 180 k/uL (150-450); RBC 4.51 m/uL (3.80-5.40); RDW 12.5 % (11.5-15.5); WBC 8.5 k/uL (3.8-10.6)
[2021-02-10 10:35] LABS: Albumin 4.1 g/dL (3.5-5.0); Calcium 8.4 mg/dL (8.4-10.2); Total Bilirubin 0.4 mg/dL (0.2-1.3); Total Protein 7.2 g/dL (6.3-8.2)
[2021-02-10 10:43] LABS: Potassium 3.9 mmol/L (3.5-5.1)
[2021-02-10] MEDS ORDERED: ONDANSETRON 4 MG/2 ML VIAL IVP PRN (10:59)
[2021-02-10] MEDS ORDERED: ACETAMINOPHEN TAB 325 MG TAB PO PRN (10:59)
[2021-02-10] MEDS ORDERED: NALOXONE 0.4 MG/ML 1 ML VIAL IV PRN (10:59)
[2021-02-10] MEDS ORDERED: SODIUM CHLORIDE 0.9% 1,000 ML IV SCH (11:00)
[2021-02-10] MEDS ORDERED: SODIUM CHLORIDE 0.9% 50 ML IVPB ONE (11:45)
[2021-02-10] MEDS ORDERED: CASIRIVIMAB/IMDEVIMAB (EUA) 1,200 MG in SODIUM CHLORIDE 0.9% 100 ML IVPB ONE (12:15)
[2021-02-10] MEDS: ENOXAPARIN 40 MG/0.4 ML SYRINGE SQ SCH (12:55)
[2021-02-10] MEDS ORDERED: CALCIUM CARBONATE 500 MG CHEWABLE PO PRN (14:26)
[2021-02-10] MEDS ORDERED: MELATONIN 3 MG TABLET PO PRN (14:26)
--- NOTE | 2021-02-10 14:26 | P.HPIM ---
History of Present Illness H&P Date: 02/10/21 Chief Complaint: Tired History of presenting complaint: This is a pleasant 60-year-old patient of . Chronic stable medical conditions include GERD, hypertension, ostial arthritis, COPD. Patient started of his fever about 6 days ago. A lot of body aches. Poor ap petite. Started out with loose stools more than 45 a day. Slight headache. Tired rundown. Finally decided to come in. Patient has decided not to take COVID-19 vaccination. In the ER found to be an acute kidney injury. Also positive for COVID-19. Patient is not short of breath. stop smoking for last 4 months. Since his last hospitalization. Patient received the Regen antibody cocktail in the ER. Review of systems: GEN.: Tired , febrile EYES: None HEENT: None NECK: None RESPIRATORY: Some shortness of breath CARDIOVASCULAR: None GASTROINTESTINAL: As above GENITOURINARY: Urine stress incontinence MUSCULOSKELETAL: Joint pains LYMPHATICS: None HEMATOLOGICAL: None PSYCHIATRY: None NEUROLOGICAL: None Past medical history to include: GERD, hypertension, osteoarthritis, COPD Social history: Lives with her ,daughter. son and 3 grandchildren. smoked for over 36 years stopped in September 2020. No alcohol Physical examination: VITAL SIGNS: 97.8, 115, 18, 88/54, 95% room air upon presentation GENERAL: BMI 23.5, reclining in bed, tired EYES: Pupils equal. Conjunctiva normal. HEENT: External appearance of nose and ears normal, oral cavity grossly normal. NECK: JVD not raised; masses not palpable. HEART: First and second heart sounds are normal; no edema. LUNGS: Respiratory rate increased, diminished breath sounds ABDOMEN: Soft, nontender, liver spleen not palpable, no masses palpable. PSYCH: Alert and oriented x3; mood and affect tired MUSCULAR skeletal: Evidence of OA in several joints NEUROLOGICAL: Cranial nerves grossly intact; no facial asymmetry, power and sensation grossly intact. LYMPHATICS: No lymph nodes palpable in the axilla and neck INVESTIGATIONS, reviewed in the clinical context: White count 8.5 hemoglobin 14.5 platelets 180 sodium 132 potassium 3.9 BUN 64 creatinine 2.70 AST 89 ALT 68 Coronavirus [PCR]: Detected Previous labs: September 2020: BUN and creatinine both normal Assessment and plan: -Acute COVID-19. Patient has systemic symptoms but is not hypoxic. Patient received Regen antibody cocktail in the ER. Supportive care with vitamin C vitamin D zinc. -COPD in a previous smoker Albuterol when necessary -Hypotensive from decreased appetite and diarrhea IV fluids -Acute diarrhea from COVID-19 Symptomatic treatment -Essential hypertension Currently hypotensive from low volume. Hold off any anti-hypertensive -Chronic urinary stress incontinence -Acute kidney injury is likely combination of prerenal and ATN IV fluids. Follow lites closely. Strict I's and O's. Past Medical History Past Medical History: GERD/Reflux, Hypertension, Osteoarthritis (OA) Additional Past Medical History / Comment(s): DIABETIC, PATIENT STATES "NOT". POSITIVE FOR LUPUS ANTICOAGULANT and double heterozygous for MTHFR gene mutation. History of Any Multi-Drug Resistant Organisms: None Reported Past Surgical History: Cholecystectomy, Hysterectomy, Orthopedic Surgery Additional Past Surgical History / Comment(s): BILATERAL EYE SURGERY (TIGHTENING OF MUSCLES). LEFT KNEE ARTHO Past Anesthesia/Blood Transfusion Reactions: Postoperative Nausea & Vomiting (PONV) Past Psychological History: No Psychological Hx Reported Smoking Status: Former smoker Past Alcohol Use History: None Reported Past Drug Use History: None Reported - Past Family History Father Family Medical History: No Reported History Additional Family Medical History / Comment(s): Father is healthy Mother Family Medical History: Diabetes Mellitus, Hypertension Medications and Allergies Home Medications Medication Instructions Recorded Confirmed Type Fluticasone/Salmeterol [Advair 1 puff PO RT-BID 10/09/20 02/10/21 History 250-50 Diskus] Montelukast Sodium [Singulair] 10 mg PO HS 10/09/20 02/10/21 History Lisinopril-Hctz 20-12.5 mg 1 tab PO HS #30 tab 10/11/20 02/10/21 Rx [Zestoretic 20-12.5] Allergies Allergy/AdvReac Type Severity Reaction Status Date / Time No Known Allergies Allergy Verified 02/10/21 10:26 Physical Exam Vitals: Vital Signs Temp Pulse Resp BP Pulse Ox 02/10/21 12:40 99.0 F 103 H 18 101/68 96 02/10/21 11:04 97 20 105/63 97 02/10/21 09:04 97.8 F 115 H 18 88/54 95 Intake and Output 02/09/21 02/10/21 02/10/21 22:59 06:59 14:59 Other: Weight 68.039 kg Results CBC & Chem 7: 02/10/21 09:58 02/10/21 09:58 Labs: Abnormal Lab Results - Last 24 Hours (Table) 02/10/21 02/10/21 02/10/21 Range/Units 09:58 09:58 09:58 Lymphocytes # 0.6 L (1.0-4.8) k/uL Sodium 132 L (137-145) mmol/L Carbon Dioxide 16 L (22-30) mmol/L BUN 64 H (7-17) mg/dL Creatinine 2.70 H (0.52-1.04) mg/dL Glucose 138 H (74-99) mg/dL AST 89 H (14-36) U/L ALT 68 H (4-34) U/L Coronavirus (PCR) Detected A (Not Detectd)
[2021-02-10 14:29] LABS: Appearance,Urine Cloudy (Clear); Bacteria,Urine Many /hpf; Bilirubin,Urine Negative (Negative); Blood,Urine Moderate (Negative); Color,Urine Yellow; Glucose,Urine (UA) Negative (Negative); Hyaline Casts,Urine 1 /lpf (0-2); Ketones,Urine Negative (Negative); Leukocyte Esterase,Urine Small (Negative); Mucus,Urine Rare /hpf; Nitrite,Urine Positive (Negative); PH, Urine 5.5 (5.0-8.0); Protein,Urine 2+ (Negative); RBC,Urine 2 /hpf (0-5); Specific Gravity,Urine 1.013 (1.001-1.035); Squamous Epithelial Cell,Urine 1 /hpf (0-4); Urobilinogen,Urine <2.0 mg/dL (<2.0); WBC,Urine 5 /hpf (0-5)
[2021-02-10] MEDS: ASCORBIC ACID 500 MG TAB PO SCH (17:06)
[2021-02-10] MEDS: CHOLECALCIFEROL 25 MCG (1000 IU) TABLET PO SCH (17:06)
[2021-02-10] MEDS: SODIUM CHLORIDE 0.9% 1,000 ML IV SCH ×2 (17:07→20:01)
[2021-02-10] MEDS: ZINC SULFATE 220 MG CAP PO SCH (17:08)
[2021-02-10] MEDS: SYMBICORT 80-4.5 MCG INHALER INHALATION SCH (20:41)
[2021-02-10] MEDS: LORazepam 0.5 MG TAB PO PRN (21:23)
[2021-02-10] MEDS: PSYLLIUM HUSK 100% 6 GM PACKET PO SCH (21:23)
[2021-02-10] MEDS: MONTELUKAST 10 MG TAB PO SCH (21:23)
[2021-02-11] MEDS: SODIUM CHLORIDE 0.9% 1,000 ML IV SCH ×2 (02:21→08:10)
[2021-02-11] MEDS: ZINC SULFATE 220 MG CAP PO SCH (08:09)
[2021-02-11] MEDS: ASCORBIC ACID 500 MG TAB PO SCH (08:09)
[2021-02-11] MEDS: ENOXAPARIN 40 MG/0.4 ML SYRINGE SQ SCH (08:09)
[2021-02-11] MEDS: PSYLLIUM HUSK 100% 6 GM PACKET PO SCH ×2 (08:09→21:09)
[2021-02-11] MEDS: CHOLECALCIFEROL 25 MCG (1000 IU) TABLET PO SCH (08:09)
[2021-02-11] MEDS: SYMBICORT 80-4.5 MCG INHALER INHALATION SCH ×2 (09:00→20:52)
[2021-02-11 09:04] LABS: Basophils # (A) 0.1 k/uL (0-0.2); Basophils % (A) 1 %; Eosinophils % (A) 0 %; HCT 37.6 % (34.0-46.0); HGB 12.8 gm/dL (11.4-16.0); Lymphocytes % (A) 10 %; MCH 33.9 pg (25.0-35.0); MCV 99.7 fL (80.0-100.0); Mean Platelet Volume 9.4; Monocytes # (A) 0.4 k/uL (0-1.0); Monocytes % (A) 4 %; Neutrophils # (A) 8.3 k/uL (1.3-7.7); Neutrophils % (A) 85 %; Platelet Count 133 k/uL (150-450); RBC 3.77 m/uL (3.80-5.40); RDW 12.8 % (11.5-15.5); WBC 9.8 k/uL (3.8-10.6)
--- NOTE | 2021-02-11 09:08 | P.NPCON ---
History of Present Illness - Reason for Consult acute renal failure - History of Present Illness Reason for consultation: Acute kidney injury History of present illness: The patient is a 60-year-old female seen in renal consultation for acute kidney injury. Patient's baseline creatinine is near 0.5 from September 2020. It was elevated at 2.7 on admission yesterday. Patient presented to the hospital with generalized weakness. She did test positive for coronavirus. She received 2 L of normal saline bolus and is now maintained on normal saline at 1 50 mL an hour. Patient's blood pressure has been low in the systolic 80s to 90s and was 106/67 this morning. She was taking lisinopril and hydrochlorothiazide outpatient which are both currently held. She has been voiding. Denies any hematuria or dysuria. No vomiting but does have loose bowel movements. Denies use of nonsteroidals. No history of diabetes. Denies family history of renal disease. Admits to a nonproductive cough. Vital signs are stable. General: The patient appeared well nourished and normally developed. HEENT: Head exam is unremarkable. LUNGS: Breath sounds decreased. HEART: Rate and Rhythm are regular. ABDOMEN: No distention noted. EXTREMITITES: No edema. Past Medical History Past Medical History: GERD/Reflux, Hypertension, Osteoarthritis (OA) Additional Past Medical History / Comment(s): DIABETIC, PATIENT STATES "NOT". POSITIVE FOR LUPUS ANTICOAGULANT and double heterozygous for MTHFR gene mutation. History of Any Multi-Drug Resistant Organisms: None Reported Past Surgical History: Cholecystectomy, Hysterectomy, Orthopedic Surgery Additional Past Surgical History / Comment(s): BILATERAL EYE SURGERY (TIGHTENING OF MUSCLES). LEFT KNEE ARTHO Past Anesthesia/Blood Transfusion Reactions: Postoperative Nausea & Vomiting (PONV) Past Psychological History: No Psychological Hx Reported Additional Psychological History / Comment(s): Pt resides with her spouse, blessing, older son and 3 grand children. She has a nebulizer. She is independent. Smoking Status: Former smoker Past Alcohol Use History: None Reported Additional Past Alcohol Use History / Comment(s): Pt started smoking in 1983 and is a ppd smoker. Past Drug Use History: None Reported - Past Family History Father Family Medical History: No Reported History Additional Family Medical History / Comment(s): Father is healthy Mother Family Medical History: Diabetes Mellitus, Hypertension Medications and Allergies Home Medications Medication Instructions Recorded Confirmed Type Fluticasone/Salmeterol [Advair 1 puff PO RT-BID 10/09/20 02/10/21 History 250-50 Diskus] Montelukast Sodium [Singulair] 10 mg PO HS 10/09/20 02/10/21 History Lisinopril-Hctz 20-12.5 mg 1 tab PO HS #30 tab 10/11/20 02/10/21 Rx [Zestoretic 20-12.5] Allergies Allergy/AdvReac Type Severity Reaction Status Date / Time No Known Allergies Allergy Verified 02/10/21 10:26 Physical Exam Vitals: Vital Signs Temp Pulse Pulse Resp BP BP Pulse Ox 02/11/21 05:28 98.7 F 94 22 106/67 91 L 02/11/21 02:19 98.0 F 83 24 96/57 91 L 02/10/21 21:51 99.2 F 94 93/62 91 L 02/10/21 20:15 123 H 22 94/62 93 L 02/10/21 20:00 98.3 F 126 H 22 80/57 93 L 02/10/21 15:14 114 H 18 114/60 02/10/21 12:40 99.0 F 103 H 18 101/68 96 02/10/21 11:04 97 20 105/63 97 02/10/21 09:04 97.8 F 115 H 18 88/54 95 Intake and Output 02/10/21 02/11/21 02/11/21 22:59 06:59 14:59 Intake Total 2120 Balance 2120 Intake: Intake, IV Titration 1800 Amount Sodium Chloride 0.9% 1, 1800 000 ml @ 150 mls/hr IV . Q6H40M [facility] Rx#:[id number] Oral 320 Other: # Voids 3 1 # Bowel Movements 1 1 Weight 68.039 kg Results - Lab Results Most recent lab results Calcium 8.4 mg/dL (8.4-10.2) 02/10/21 09:58 02/10/21 09:58 02/10/21 09:58 Assessment and Plan Plan: Assessment: 1. Acute kidney injury secondary to ATN secondary to hypotension and Covid 19 infection. Baseline creatinine near 1 and up to 2.7 as of yesterday. 2. COVID-19 infection. 3. Metabolic acidosis secondary to acute kidney injury, GI losses and IV fluids. 4. Benign hypertension. Blood pressure currently on the lower side. Plan: Maintain IV fluids. Continue to hold antihypertensives and diuretics. Follow-up morning labs. Check urine culture. Avoid nephrotoxins. Check renal uls. Thank you for the consultation. I will continue to follow the patient with you during her hospital stay.
[2021-02-11 09:28] LABS: African American GFR (CKD) 72 (>60 ml/min/1.73 sqM); Anion Gap 11 mmol/L; Blood Urea Nitrogen 45 mg/dL (7-17); Calcium 7.8 mg/dL (8.4-10.2); Carbon Dioxide 12 mmol/L (22-30); Chloride 110 mmol/L (98-107); Glucose 122 mg/dL (74-99); Non-African American GFR(CKD) 63 (>60 ml/min/1.73 sqM); Sodium 133 mmol/L (137-145)
[2021-02-11 09:38] LABS: Magnesium 1.8 mg/dL (1.6-2.3); Potassium 4.1 mmol/L (3.5-5.1)
--- NOTE | 2021-02-11 09:53 | US ---
EXAMINATION TYPE: US kidneys/renal and bladder DATE OF EXAM: 02/11/2021 COMPARISON: NONE CLINICAL HISTORY: chauncey. Covid positive EXAM MEASUREMENTS: Right Kidney: 10.4x4.7x6.5 cm Left Kidney: 11.4x6.1x5.4 cm Right Kidney: Large mid cyst 3.2x3.7x3.0cm Left Kidney: Inf Mid cyst 1.7x2.1x1.6cm Bladder: wnl Bilateral Jets seen: Yes There is no evidence for hydronephrosis at this point in time. No nephrolithiasis is seen. The urin tommy bladder is anechoic. Bilateral ureteral jets are seen. IMPRESSION: Simple cyst left kidney.
[2021-02-11] MEDS: DEXTROSE 5% IN WATER 1,000 ML with SODIUM BICARB (1 MEQ/ML) 50 ML IV SCH ×2 (12:33→22:51)
--- NOTE | 2021-02-11 19:29 | P.PN ---
Progress Note - Text Progress Note Date: 02/11/21 Chief Complaint: Tired History of presenting complaint: This is a pleasant 60-year-old patient of . Chronic stable medical conditions include GERD, hypertension, ostial arthritis, COPD. Patient started of his fever about 6 days ago. A lot of body aches. Poor appetite. Started out with loose stools more than 45 a day. Slight headache. Tired rundown. Finally decided to come in. Patient has decided not to take COVID-19 vaccination. In the ER found to be an acute kidney injury. Also positive for COVID-19. Patient is not short of breath. stop smoking for last 4 months. Since his last hospitalization. Patient received the Regen antibody cocktail in the ER. Admitted with acute kidney injury, hypertension, acute diarrhea from COVID-19. Started IV fluids. Was given antibody cocktail in the ER. Supportive treatment. February 11: Feeling better. Did eat her breakfast. Did improving. She is a bit stronger. Requested the patient sit up in a chair and spoke to the nurse increase activity. Renal function better. Review of systems: Was done for constitutional, cardiovascular, GI, pulmonary. relevant finding as above Active Medications Acetaminophen (Acetaminophen Tab 325 Mg Tab) 650 mg PO Q6HR PRN PRN Reason: Mild Pain or Fever > 100.5 Ascorbic Acid (Ascorbic Acid 500 Mg Tab) 1,000 mg PO DAILY [facility] Last Admin: 02/11/21 08:09 Dose: 1,000 mg Documented by: Budesonide/Formoterol Fumarate (Symbicort 80-4.5 Mcg Inhaler) 2 puff INHALATION RT-BID [facility] Last Admin: 02/11/21 09:00 Dose: 2 puff Documented by: Calcium Carbonate/Glycine (Calcium Carbonate 500 Mg Chewable) 1,000 mg PO Q4HR PRN PRN Reason: Dyspepsia Last Admin: 02/11/21 12:40 Dose: 1,000 mg Documented by: Cholecalciferol (Cholecalciferol 25 Mcg (1000 Iu) Tablet) 100 mcg PO DAILY [facility] Last Admin: 02/11/21 08:09 Dose: 100 mcg Documented by: Enoxaparin Sodium (Enoxaparin 40 Mg/0.4 Ml Syringe) 40 mg SQ DAILY [facility] Last Admin: 02/11/21 08:09 Dose: 40 mg Documented by: Sodium Bicarbonate 50 ml/ (Dextrose/Water) 1,050 mls @ 100 mls/hr IV .[id number] [facility] Last Admin: 02/11/21 12:33 Dose: 100 mls/hr Documented by: Lorazepam (Lorazepam 0.5 Mg Tab) 0.5 mg PO Q6HR PRN PRN Reason: Anxiety Last Admin: 02/10/21 21:23 Dose: 0.5 mg Documented by: Melatonin (Melatonin 3 Mg Tablet) 3 mg PO HS PRN PRN Reason: Insomnia Montelukast Sodium (Montelukast 10 Mg Tab) 10 mg PO HS [facility] Last Admin: 02/10/21 21:23 Dose: 10 mg Documented by: Naloxone HCl (Naloxone 0.4 Mg/Ml 1 Ml Vial) 0.2 mg IV Q2M PRN PRN Reason: Opioid Reversal Ondansetron HCl (Ondansetron 4 Mg/2 Ml Vial) 4 mg IVP Q8HR PRN PRN Reason: Nausea And Vomiting Psyllium Hydrophilic Mucilloid (Psyllium Husk 100% 6 Gm Packet) 6 gm PO BID [facility] Last Admin: 02/11/21 08:09 Dose: 6 gm Documented by: Zinc Sulfate (Zinc Sulfate 220 Mg Cap) 220 mg PO DAILY [facility] Last Admin: 02/11/21 08:09 Dose: 220 mg Documented by: Past medical history to include: GERD, hypertension, osteoarthritis, COPD Social history: Lives with her ,daughter. son and 3 grandchildren. smoked for over 36 years stopped in September 2020. No alcohol Physical examination: VITAL SIGNS: 97.4, 82, 20, 115/65, 93% on room air GENERAL:, reclining in bed, tired PSYCH: Alert and oriented x3; mood and affect tired History of exam as per nephrology and nursing INVESTIGATIONS, reviewed in the clinical context: February 03: WBC 9.8 hemoglobin 12.8 platelets 133 potassium 4.1 BUN 45 creatinine 1 bicarb 12 CRP 4.1 White count 8.5 hemoglobin 14.5 platelets 180 sodium 132 potassium 3.9 BUN 64 creatinine 2.70 AST 89 ALT 68 Coronavirus [PCR]: Detected Previous labs: September 2020: BUN and creatinine both normal Assessment and plan: -Acute COVID-19. Patient has systemic symptoms , pulse ox is 93% on room air today. received Regen antibody cocktail in the ER. Supportive care with vitamin C vitamin D zinc. Started dexamethasone 6 mg daily. Subcu Lovenox. -COPD in a previous smoker Albuterol when necessary -Hypotensive from decreased appetite and diarrhea: Slowly improving IV fluids -Acute diarrhea from COVID-19 Slight improvement -Essential hypertension Currently hypotensive from low volume. Hold off any anti-hypertensive -Chronic urinary stress incontinence -Acute kidney injury is likely combination of prerenal and ATN: Improving Cutback IV fluids -Acute metabolic acidosis from renal failure Started on bicarbonate drip. Patient's pulse ox is: No known 93/94%. We'll start Decadron 6 mg daily. IV bicarbonate drip. Increase activity. Discussed with the patient and nurse. Repeat labs
[2021-02-11] MEDS: LORazepam 0.5 MG TAB PO PRN (21:09)
[2021-02-11] MEDS: MONTELUKAST 10 MG TAB PO SCH (21:09)
[2021-02-11] MEDS: dexAMETHasone 2 MG TAB PO SCH (21:12)
[2021-02-12 07:24] LABS: African American GFR (CKD) >90 (>60 ml/min/1.73 sqM); Anion Gap 7 mmol/L; Blood Urea Nitrogen 18 mg/dL (7-17); C Reactive Protein 4.1 mg/dL (<1.0); Calcium 8.2 mg/dL (8.4-10.2); Carbon Dioxide 25 mmol/L (22-30); Chloride 101 mmol/L (98-107); Glucose 193 mg/dL (74-99); Magnesium 1.8 mg/dL (1.6-2.3); Non-African American GFR(CKD) >90 (>60 ml/min/1.73 sqM); Potassium 3.7 mmol/L (3.5-5.1); Sodium 133 mmol/L (137-145)
[2021-02-12] MEDS: PSYLLIUM HUSK 100% 6 GM PACKET PO SCH (07:37)
[2021-02-12] MEDS: CHOLECALCIFEROL 25 MCG (1000 IU) TABLET PO SCH (07:37)
[2021-02-12] MEDS: ENOXAPARIN 40 MG/0.4 ML SYRINGE SQ SCH (07:37)
[2021-02-12] MEDS: dexAMETHasone 2 MG TAB PO SCH (07:37)
[2021-02-12] MEDS: ASCORBIC ACID 500 MG TAB PO SCH (07:37)
[2021-02-12] MEDS: ZINC SULFATE 220 MG CAP PO SCH (07:37)
[2021-02-12] MEDS: DEXTROSE 5% IN WATER 1,000 ML with SODIUM BICARB (1 MEQ/ML) 50 ML IV SCH (07:38)
[2021-02-12] MEDS: SYMBICORT 80-4.5 MCG INHALER INHALATION SCH (08:42)
[2021-02-12 11:21] VITALS: BP 112/69; PULSE 93; RESP 16; TEMP 97.5
--- NOTE | 2021-02-12 11:28 | P.PN ---
Subjective Patient seen in follow for acute kidney injury. Renal function is back to baseline. Oral intake is good. No vomiting. Good urine output. On room air. Vital signs are stable. General: The patient appeared well nourished and normally developed. HEENT: Head exam is unremarkable. Neck is without jugular venous distension. LUNGS: Breath sounds decreased. HEART: Rate and Rhythm are regular. ABDOMEN: Soft, no distention. EXTREMITITES: No edema. Objective - Vital Signs Vital signs: Vital Signs Temp 97.5 F L 02/12/21 10:00 Pulse 93 02/12/21 10:00 Resp 16 02/12/21 10:00 BP 112/69 02/12/21 10:00 Pulse Ox 93 L 02/12/21 11:25 Intake & Output 02/11/21 02/12/21 02/12/21 18:59 06:59 18:59 Intake Total 1680 Balance 1680 Intake: Intake, IV Titration 1200 Amount Dextrose 5% in Water 1, 1200 000 ml @ 100 mls/hr IV . [id number] VADIM with Sodium Bicarb (1 Meq/ml) 50 ml Rx#:[id number] Oral 480 Other: # Voids 1 # Bowel Movements 1 - Labs CBC & Chem 7: 02/11/21 07:02 02/12/21 06:24 Labs: Abnormal Lab Results - Last 24 Hours (Table) 02/12/21 Range/Units 06:24 Sodium 133 L (137-145) mmol/L BUN 18 H (7-17) mg/dL Glucose 193 H (74-99) mg/dL Calcium 8.2 L (8.4-10.2) mg/dL C-Reactive Protein 4.1 H (<1.0) mg/dL Microbiology - Last 24 Hours (Table) 02/11/21 12:50 Urine Culture - Preliminary Urine,Clean Catch Assessment and Plan Plan: Assessment: 1. Acute kidney injury secondary to ATN secondary to hypotension and Covid 19 infection. Resolved. GFR back to baseline. No hydronephrosis noted on kidney ultrasound. 2. COVID-19 infection. 3. Metabolic acidosis secondary to acute kidney injury, GI losses and IV fluids. Resolved. 4. Benign hypertension. Controlled. Plan: Hep-Lock IV fluids. Continue to hold antihypertensives and diuretics. Avoid nephrotoxins.
--- NOTE | 2021-02-12 22:30 | P.DS ---
Providers Date of admission: 02/10/21 10:59 Expected date of discharge: 02/12/21 Attending physician: Rubens Haas Consults: 02/10/21 11:00 Consult Physician Urgent Consulting Provider: Ambrocio Baca Consult Reason/Comments: Renal failure Do you want consulting provider notified?: Yes Primary care physician: Rui Baptiste [facility] Course: Chief Complaint: Tired History of presenting complaint: This is a pleasant 60-year-old patient of . Chronic stable medical conditions include GERD, hypertension, ostial arthritis, COPD. Patient started of his fever about 6 days ago. A lot of body aches. Poor appetite. Started out with loose stools more than 45 a day. Slight headache. Tired rundown. Finally decided to come in. Patient has decided not to take COVID-19 vaccination. In the ER found to be an acute kidney injury. Also positive for COVID-19. Patient is not short of breath. stop smoking for last 4 months. Since his last hospitalization. Patient received the Regen antibody cocktail in the ER. Admitted with acute kidney injury, hypertension, acute diarrhea from COVID-19. Started IV fluids. Was given antibody cocktail in the ER. Supportive treatment. February 11: Feeling better. Did eat her breakfast. Did improving. She is a bit stronger. Requested the patient sit up in a chair and spoke to the nurse increase activity. Renal function better. February 12: Doing much better. Using a walker to be comfortably going about. Slight cough. Patient does use oxygen at home at night sometimes. Patient is being discharged home on 2 L of oxygen. Dexamethasone was started. Patient was counseled about COVID-19. Isolation instructions given Discussion and discharge planning more than 35 minutes Consultation: Dr. Baca from nephrology Past medical history to include: GERD, hypertension, osteoarthritis, COPD Social history: Lives with her ,daughter. son and 3 grandchildren. smoked for over 36 years stopped in September 2020. No alcohol Physical examination: VITAL SIGNS: 97.5, 93, 16, 100/69, 93% room air GENERAL:, That he is on a chair, more comfortable PSYCH: Alert and oriented x3; mood and affect tired History of exam as per nephrology and nursing INVESTIGATIONS, reviewed in the clinical context: February 12: Sodium 133 potassium 3.7 creatinine 0.56 Naila 29: WBC 9.8 hemoglobin 12.8 platelets 133 potassium 4.1 BUN 45 creatinine 1 bicarb 12 CRP 4.1 White count 8.5 hemoglobin 14.5 platelets 180 sodium 132 potassium 3.9 BUN 64 creatinine 2.70 AST 89 ALT 68 Coronavirus [PCR]: Detected Previous labs: September 2020: BUN and creatinine both normal Assessment and plan: -Acute COVID-19. Patient has systemic symptoms , pulse ox is 93% on room air received Regen antibody cocktail in the ER. vitamin C vitamin D zinc. dexamethasone 6 mg daily-8 days. -Mild acute hypoxia from COVID-19 Discharge home on L of oxygen -COPD in a previous smoker Albuterol when necessary -Hypotensive from decreased appetite and diarrhea: Improved Resumed blood pressure medication with systolic blood pressure above 1:30 -Acute diarrhea from COVID-19: Improved Metamucil -Essential hypertension Currently hypotensive from low volume. Resume blood pressure medication with systolic blood pressure below 1:30 -Chronic urinary stress incontinence -Acute kidney injury is likely combination of prerenal and ATN: Corrected IV fluids -Acute metabolic acidosis from renal failure: Corrected bicarbonate drip. Disposition: Home Patient Condition at Discharge: Fair Plan - Discharge Summary Discharge Rx Participant: No New Discharge Prescriptions: New dexAMETHasone ORAL [Hexadrol] 6 mg PO DAILY #21 tab Psyllium Husk 100% [Metamucil Packet] 6 gm PO DAILY #30 packet Zinc Sulfate [Orazinc] 220 mg PO DAILY #30 cap Cholecalciferol [Vitamin D3 (25 Mcg = 1000 Iu)] 100 mcg PO DAILY #100 tablet Albuterol Sulfate [Albuterol Sulfate Hfa] 2 puff PO Q6H #1 gm Ascorbic Acid [Vitamin C] 1,000 mg PO DAILY #60 tab Continue Montelukast Sodium [Singulair] 10 mg PO HS Fluticasone/Salmeterol [Advair 250-50 Diskus] 1 puff PO RT-BID No Action Lisinopril-Hctz 20-12.5 mg [Zestoretic 20-12.5] 1 tab PO HS #30 tab Discharge Medication List Fluticasone/Salmeterol [Advair 250-50 Diskus] 1 puff PO RT-BID 10/09/20 [History] Montelukast Sodium [Singulair] 10 mg PO HS 10/09/20 [History] Lisinopril-Hctz 20-12.5 mg [Zestoretic 20-12.5] 1 tab PO HS #30 tab 10/11/20 [Rx] Albuterol Sulfate [Albuterol Sulfate Hfa] 2 puff PO Q6H #1 gm 02/12/21 [Rx] Ascorbic Acid [Vitamin C] 1,000 mg PO DAILY #60 tab 02/12/21 [Rx] Cholecalciferol [Vitamin D3 (25 Mcg = 1000 Iu)] 100 mcg PO DAILY #100 tablet 02/12/21 [Rx] Psyllium Husk 100% [Metamucil Packet] 6 gm PO DAILY #30 packet 02/12/21 [Rx] Zinc Sulfate [Orazinc] 220 mg PO DAILY #30 cap 02/12/21 [Rx] dexAMETHasone ORAL [Hexadrol] 6 mg PO DAILY #21 tab 02/12/21 [Rx] Follow up Appointment(s)/Referral(s): Rui Baptiste DO [Primary Care Provider] - 02/14/21 (OFFICE WILL CALL YOU ON February BETWEEN 9AM-NOON.) [employer] [NON-STAFF] - As Needed (Supplier of 4 wheeled walker) [facility], [NON-STAFF] - 1-2 Days (AGENCY WILL CONTACT YOU.) Patient Instructions/Handouts: Coronavirus Disease 2019 (COVID-19), Acute Kidney Injury (DC) Activity/Diet/Wound Care/Special Instructions: covid 19 dc orders fio2 - 2l Discharge Disposition: HOME SELF-CARE
== END 2021-02-12 14:29 | disposition home or self-care (01) | DRG 177 ==
LOC: EC 09:03 → 4SSUR 10:59
PROVIDERS: ADMIT Hospitalist; ATTEND Hospitalist
DX: U07.1 COVID-19 (principal); N17.0 Acute kidney failure with tubular necrosis; D68.62 Lupus anticoagulant syndrome; E87.2 Acidosis; E86.0 Dehydration; E11.9 Type 2 diabetes mellitus without complications; I10 Essential (primary) hypertension; I95.9 Hypotension, unspecified; J44.9 Chronic obstructive pulmonary disease, unspecified; R19.7 Diarrhea, unspecified; K21.9 Gastro-esophageal reflux disease without esophagitis; M19.90 Unspecified osteoarthritis, unspecified site; N39.3 Stress incontinence (female) (male); R09.02 Hypoxemia; Z15.89 Genetic susceptibility to other disease; Z79.899 Other long term (current) drug therapy; Z87.891 Personal history of nicotine dependence; Z90.710 Acquired absence of both cervix and uterus; Z90.49 Acquired absence of other specified parts of digestive tract
CPT/HCPCS: 36415; 71046; 76770; 80048; 80053; 81001; 83605; 83735; 85025; 85379; 86140; 87077; 87086; 87186; 87635; 93005; 94640; 94760; 96361; 96374; 99285

== ENCOUNTER 2024-03-12 17:24 | Observation (INO) | payer OTHER ==
--- NOTE | 2024-03-12 17:49 | ED ---
General Adult HPI - General Chief complaint: Recheck/Abnormal Lab/Rx Stated complaint: Both Legs Swelling Time Seen by Provider: 03/12/24 17:40 Source: patient Mode of arrival: wheelchair Limitations: no limitations - History of Present Illness Initial comments: Dictation was produced using [employer] dictation software. please excuse any grammatical, word or spelling errors. Chief Complaint: 64-year-old female with leg swelling History of Present Illness: Patient 64-year-old female she has past medical history of hypertension and COPD. States that she is here today for a couple days of leg swelling. Patient was told by primary care doctor that whenever she is exposed to cold air her leg started to swell. Patient denies any shortness of breath though she does complain of history of COPD. Patient denies any cardiac history. Denies any chest pain. Denies any fever, chills or night sweats. She states that her legs do not feel painful or swollen. The ROS documented in this emergency department record has been reviewed and confirmed by me. Those systems with pertinent positive or negative responses have been documented in the HPI. All other systems are other negative and/or noncontributory. - Related Data Home Medications Medication Instructions Recorded Confirmed Fluticasone Propion/Salmeterol 2 puff INHALATION RT-BID 10/09/20 03/12/24 [Advair 250-50 Diskus] Acetaminophen/Diphenhydramine 2 tab PO HS 03/12/24 03/12/24 [Tylenol PM 500-25mg] Ipratropium-Albuterol Nebulize 3 ml INHALATION RT-QID 03/12/24 03/12/24 [Duoneb 0.5 mg-3 mg/3 ml Soln] Metoprolol Tartrate [Lopressor] 100 mg PO HS 03/12/24 03/12/24 Allergies Allergy/AdvReac Type Severity Reaction Status Date / Time No Known Allergies Allergy Verified 03/12/24 18:14 Review of Systems ROS Statement: Those systems with pertinent positive or pertinent negative responses have been documented in the HPI. ROS Other: All systems not noted in ROS Statement are negative. Past Medical History Past Medical History: GERD/Reflux, Hypertension, Osteoarthritis (OA) Additional Past Medical History / Comment(s): DIABETIC, PATIENT STATES "NOT". POSITIVE FOR LUPUS ANTICOAGULANT and double heterozygous for MTHFR gene mutation. History of Any Multi-Drug Resistant Organisms: None Reported Past Surgical History: Cholecystectomy, Hysterectomy, Orthopedic Surgery Additional Past Surgical History / Comment(s): BILATERAL EYE SURGERY (TIGHTENING OF MUSCLES). LEFT KNEE ARTHO Past Anesthesia/Blood Transfusion Reactions: Postoperative Nausea & Vomiting (PONV) Past Psychological History: No Psychological Hx Reported Smoking Status: Former smoker Past Alcohol Use History: None Reported Past Drug Use History: None Reported - Past Family History Father Family Medical History: No Reported History Additional Family Medical History / Comment(s): Father is healthy Mother Family Medical History: Diabetes Mellitus, Hypertension General Exam - General Exam Comments Initial Comments: PHYSICAL EXAM: General Impression: Alert and oriented x3, not in acute distress HEENT: Normocephalic atraumatic, extra-ocular movements intact, pupils equal and reactive to light bilaterally, mucous membranes moist. Cardiovascular: Heart regular rate and rhythm Chest: Able to complete full sentences, no retractions, no tachypnea Abdomen: abdomen soft, non-tender, non-distended, no organomegaly Musculoskeletal: Pulses present and equal in all extremities, 2+ pitting edema to the lower extremities bilaterally to the knee Motor: no focal deficits noted Neurological: CN II-XII grossly intact, no focal motor or sensory deficits noted Skin: Intact with no visualized rashes Psych: Normal affect and mood Limitations: no limitations Course Vital Signs 03/12/24 17:31 Temperature 97.7 F Pulse Rate 66 Respiratory 20 Rate Blood Pressure 162/85 O2 Sat by Pulse 92 L Oximetry Medical Decision Making - Medical Decision Making Was pt. sent in by a medical professional or institution (, PA, [employer], urgent care, hospital, or retirement...) When possible be specific @ -No Did you speak to anyone other than the patient for history (EMS, parent, family, police, friend...)? What history was obtained from this source @ -No Did you review nursing and triage notes (agree or disagree)? Why? @ -I reviewed and agree with nursing and triage notes Were old charts reviewed (outside hosp., previous admission, EMS record, old EKG, old radiological studies, urgent care reports/EKG's, retirement records)? Report findings @ -No old charts were reviewed Differential Diagnosis (chest pain, altered mental status, abdominal pain women, abdominal pain men, vaginal bleeding, musculoskeletal, weakness, fever, dyspnea, syncope, headache, dizziness, GI bleed, back pain, seizure, CVA, palpatations, mental health)? @ -Heart failure, cellulitis, dvt EKG interpreted by me (3pts min.). @ -Above X-rays interpreted by me (1pt min.). @ -X-ray is nonacute CT interpreted by me (1pt min.). @ -None done U/S interpreted by me (1pt. min.). @ -None done What testing was considered but not performed or refused? (CT, X-rays, U/S, labs)? Why? @ -None What meds were considered but not given or refused? Why? @ -None Was smoking cessation discussed for >3mins.? @ -No Were there social determinants of health that impacted care today? How? (Homelessness, low income, unemployed, alcoholism, drug addiction, transportation, low edu. Level, literacy, decrease access to med. care, shelter, rehab)? @ -No Was there de-escalation of care discussed even if they declined (Discuss DNR or withdrawal of care, Hospice)? DNR status @ -No What co-morbidities impacted this encounter? (DM, HTN, Smoking, COPD, CAD, Cancer, CVA, ARF, Chemo, Hep., AIDS, mental health diagnosis, sleep apnea, morbid obesity)? @ -COPD Was patient admitted / discharged? Hospital course, mention meds given and route, prescriptions, significant lab abnormalities, going to OR and other pertinent info. @ -64-year-old female presents to the emergency department with leg swelling. Patient has pitting edema at the bedside. Vital signs upon arrival are within acceptable limits. She does have some shortness of breath but to her it seems chronic. She denies any history of cardiac disease. Laboratory evaluation obtained. BNP is extremely elevated 18,000. X-ray is negative. Patient be admitted to observation consultation to cardiology. Patient treated with Lasix. Did you discuss the management of the patient with other professionals (professionals i.e. , PA, [employer], lab, RT, psych nurse, psychiatric social worker supervisor, set up mechanic stamping machines, teacher, loss prevention officer, pillowcase turner)? Give summary @ -Case discussed with Dr. Valera for admission Was critical care preformed (if so, how long)? @ -No Undiagnosed new problem with uncertain prognosis? @ -No Drug Therapy requiring intensive monitoring for toxicity (Heparin, Nitro, Insulin, Cardizem)? @ -No Were any procedures done? @ -No Diagnosis/symptom? Acute, or Chronic, or Acute on Chronic? Uncomplicated (without systemic symptoms) or Complicated (systemic symptoms)? @ -Leg edema Side effects of treatment? @ -No Exacerbation, Progression, or Severe Exacerbation? @ -No Poses a threat to life or bodily function? How? (Chest pain, [place], [place], pneumonia, PE, COPD, DKA, ARF, appy, cholecystitis, CVA, Diverticulitis, Homicidal, Suic idal, threat to staff... and all critical care pts) @ -yes - Lab Data Result diagrams: 03/12/24 18:19 03/12/24 18:19 Lab Results 03/12/24 03/12/24 Range/Units 18:19 18:19 WBC 12.5 H (3.8-10.6) k/uL RBC 4.69 (3.80-5.40) m/uL Hgb 15.2 (11.4-16.0) gm/dL Hct 48.6 H (34.0-46.0) % MCV 103.7 H (80.0-100.0) fL MCH 32.3 (25.0-35.0) pg MCHC 31.2 (31.0-37.0) g/dL RDW 13.7 (11.5-15.5) % Plt Count 191 (150-450) k/uL MPV 7.4 Neutrophils % 88 % Lymphocytes % 6 % Monocytes % 4 % Eosinophils % 2 % Basophils % 0 % Neutrophils # 11.0 H (1.3-7.7) k/uL Lymphocytes # 0.8 L (1.0-4.8) k/uL Monocytes # 0.5 (0-1.0) k/uL Eosinophils # 0.3 (0-0.7) k/uL Basophils # 0.0 (0-0.2) k/uL Hypochromasia Moderate Macrocytosis Slight Sodium 140 (137-145) mmol/L Potassium 3.6 (3.5-5.1) mmol/L Chloride 100 (98-107) mmol/L Carbon Dioxide 35 H (22-30) mmol/L Anion Gap 5 mmol/L BUN 17 (7-17) mg/dL Creatinine 0.66 (0.52-1.04) mg/dL Est GFR (CKD-EPI)AfAm >90 (>60 ml/min/1.73 sqM) Est GFR (CKD-EPI)NonAf >90 (>60 ml/min/1.73 sqM) Glucose 104 H (74-99) mg/dL Calcium 8.8 (8.4-10.2) mg/dL NT-Pro-B Natriuret Pep 17349 pg/mL Disposition Clinical Impression: Leg edema Disposition: ADMITTED IP TO THIS HOSP Condition: Fair Referrals: Rui Baptiste DO [Primary Care Provider] - 1-2 days Decision Time: 19:02
[2024-03-12 18:31] LABS: Basophils % (A) 0 %; Eosinophils # (A) 0.3 k/uL (0-0.7); Eosinophils % (A) 2 %; HCT 48.6 % (34.0-46.0); HGB 15.2 gm/dL (11.4-16.0); Hypochromasia Moderate; Lymphocytes # (A) 0.8 k/uL (1.0-4.8); Lymphocytes % (A) 6 %; MCH 32.3 pg (25.0-35.0); MCHC 31.2 g/dL (31.0-37.0); MCV 103.7 fL (80.0-100.0); Macrocytosis Slight; Mean Platelet Volume 7.4; Monocytes # (A) 0.5 k/uL (0-1.0); Monocytes % (A) 4 %; Neutrophils % (A) 88 %; Platelet Count 191 k/uL (150-450); RBC 4.69 m/uL (3.80-5.40); RDW 13.7 % (11.5-15.5); WBC 12.5 k/uL (3.8-10.6)
[2024-03-12 18:39] LABS: African American GFR (CKD) >90 (>60 ml/min/1.73 sqM); Anion Gap 5 mmol/L; Blood Urea Nitrogen 17 mg/dL (7-17); Calcium 8.8 mg/dL (8.4-10.2); Carbon Dioxide 35 mmol/L (22-30); Chloride 100 mmol/L (98-107); Glucose 104 mg/dL (74-99); Non-African American GFR(CKD) >90 (>60 ml/min/1.73 sqM); Potassium 3.6 mmol/L (3.5-5.1); Sodium 140 mmol/L (137-145)
[2024-03-12 18:48] LABS: NT-Pro-B-Type Natriuretic Pept 18100 pg/mL
--- NOTE | 2024-03-12 18:50 | XR ---
EXAMINATION TYPE: XR chest 2V DATE OF EXAM: 03/12/2024 6:32 PM COMPARISON: Chest radiographs from 02/10/2021 CLINICAL INDICATION: Female, 64 years old with history of leg swelling; [facility] TECHNIQUE: XR chest 2V Frontal and lateral views of the chest. FINDINGS: Lungs/Pleura: There is no evidence of pleural effusion, focal consolidation, or pneumothorax. Pulmonary vascularity: Unremarkable. Heart/mediastinum: Cardiomediastinal silhouette is unremarkable. Musculoskeletal: No acute osseous pathology. IMPRESSION: No acute cardiopulmonary disease/process. [facility] Rom[facility] Connors, , 03/12/2024 6:48 PM
[2024-03-12] MEDS: FUROSEMIDE 10 MG/ML 4 ML VIAL IV STA (20:03)
[2024-03-12] MEDS: FUROSEMIDE 10 MG/ML 4 ML VIAL IV SCH (20:03)
[2024-03-13] MEDS: FUROSEMIDE 10 MG/ML 4 ML VIAL IV SCH (06:54)
[2024-03-13] MEDS: LOSARTAN-HCTZ 50-12.5 MG 1 EACH TAB PO SCH (10:06)
--- NOTE | 2024-03-13 11:08 | P.CRDCN ---
History of Present Illness History of present illness: HISTORY OF PRESENT ILLNESS: This is a 64-year-old female with a past medical history significant for hypertension, COPD and former nicotine dependence. Patient does not follow with a marshmallow maker. We have been asked to see the patient in consultation for heart failure. Patient examined at the bedside in the emergency room. Patient presented to the hospital with a chief complaint of swelling to her legs. She states for the past few days she has noticed swelling of both of her legs and weeping. She also reports that her feet felt cold to the touch. She denied having any weight gain at home. She denies any chest pain or pressure. Denies any shortness of breath. She does report feeling dizzy at times. She states that her granddaughter was sick last week and she did catch a upper respiratory infection from her. She does report having a cough still from her recent illness. DIAGNOSTICS: - EKG reveals sinus mechanism with nonspecific ST-T wave changes - Chest xray negative for acute process - Laboratory data: WBC 12.5. Hemoglobin 15.2. Platelet count 191. Sodium 140. Potassium 3.6. BUN 17. Creatinine 0.66. proBNP 18,100. - Current home cardiac medications include metoprolol tartrate 100 mg at night REVIEW OF SYSTEMS: At the time of my exam: CONSTITUTIONAL: Denies fever or chills. HEENT: Denies blurred vision, vision changes, or eye pain. Denies hemoptysis CARDIOVASCULAR: Denies chest pain. Denies orthopnea. Denies PND. Denies palpitations RESPIRATORY: Denies shortness of breath. GASTROINTESTINAL: Denies abdominal pain. Denies nausea or vomiting. HEMATOLOGIC: Denies bleeding disorders. GENITOURINARY: Denies any blood in urine. SKIN: Denies pruitis. Denies rash. PHYSICAL EXAM: VITAL SIGNS: Reviewed. GENERAL: Well-developed in no acute distress. HEENT: Head is normocephalic. Pupils are equal, round. Sclerae anicteric. Mucous membranes of the mouth are moist. Neck supple. No JVD or thyromegaly LUNGS: Respirations even and unlabored. Lungs very diminished bilaterally HEART: Regular rate and rhythm. S1 and S2 heard. ABDOMEN: Soft. Nondistended. Nontender. EXTREMITIES: Normal range of motion. No clubbing or cyanosis. Peripheral pulses intact. 2+ bilateral pitting lower extremity edema NEUROLOGIC: Awake and alert. Oriented x 3. ASSESSMENT: Acute heart failure, type unknown, echo pending Hypertension COPD Former nicotine dependence PLAN: Obtain 2D echo to assess cardiac structure and function Resume home cardiac medications Continue IV Lasix 40 mg every 8 hours Daily weights, accurate intake and output, monitoring of kidney function Add losartanhydrochlorothiazide 50-12.5 mg daily Obtain troponins x 3 Further recommendations pending patient course Nurse practitioner note has been reviewed by physician. Signing provider agrees with the documented findings, assessment, and plan of care documented by ORAL SURGERY PHYSICIAN as a scribe. Past Medical History Past Medical History: GERD/Reflux, Hypertension, Osteoarthritis (OA) Additional Past Medical History / Comment(s): DIABETIC, PATIENT STATES "NOT". POSITIVE FOR LUPUS ANTICOAGULANT and double heterozygous for MTHFR gene mutation. History of Any Multi-Drug Resistant Organisms: None Reported Past Surgical History: Cholecystectomy, Hysterectomy, Orthopedic Surgery Additional Past Surgical History / Comment(s): BILATERAL EYE SURGERY (TIGHTENING OF MUSCLES). LEFT KNEE ARTHO Past Anesthesia/Blood Transfusion Reactions: Postoperative Nausea & Vomiting (PONV) Past Psychological History: No Psychological Hx Reported Smoking Status: Former smoker Past Alcohol Use History: None Reported Past Drug Use History: None Reported - Past Family History Father Family Medical History: No Reported History Additional Family Medical History / Comment(s): Father is healthy Mother Family Medical History: Diabetes Mellitus, Hypertension Medications and Allergies Home Medications Medication Instructions Recorded Confirmed Type Fluticasone Propion/Salmeterol 2 puff INHALATION RT-BID 10/09/20 03/12/24 History [Advair 250-50 Diskus] Acetaminophen/Diphenhydramine 2 tab PO HS 03/12/24 03/12/24 History [Tylenol PM 500-25mg] Ipratropium-Albuterol Nebulize 3 ml INHALATION RT-QID 03/12/24 03/12/24 History [Duoneb 0.5 mg-3 mg/3 ml Soln] Metoprolol Tartrate [Lopressor] 100 mg PO HS 03/12/24 03/12/24 History Allergies Allergy/AdvReac Type Severity Reaction Status Date / Time No Known Allergies Allergy Verified 03/12/24 18:14 Physical Exam Vitals: Vital Signs Temp Pulse Resp BP Pulse Ox 03/13/24 06:29 83 18 138/67 96 03/13/24 03:31 95 18 139/83 97 03/13/24 00:00 80 03/12/24 23:00 74 151/96 94 L 03/12/24 22:00 81 19 135/97 95 03/12/24 21:00 80 21 132/103 91 L 03/12/24 19:53 84 20 155/81 88 L 03/12/24 17:31 97.7 F 66 20 162/85 92 L Intake and Output 03/12/24 03/13/24 03/13/24 22:59 06:59 14:59 Other: Weight 74.843 kg Results 03/12/24 18:19 03/12/24 18:19 CBC 03/12/24 Range/Units 18:19 WBC 12.5 H (3.8-10.6) k/uL RBC 4.69 (3.80-5.40) m/uL Hgb 15.2 (11.4-16.0) gm/dL Hct 48.6 H (34.0-46.0) % Plt Count 191 (150-450) k/uL Comprehensive Metabolic Panel 03/12/24 Range/Units 18:19 Sodium 140 (137-145) mmol/L Potassium 3.6 (3.5-5.1) mmol/L Chloride 100 (98-107) mmol/L Carbon Dioxide 35 H (22-30) mmol/L BUN 17 (7-17) mg/dL Creatinine 0.66 (0.52-1.04) mg/dL Glucose 104 H (74-99) mg/dL Calcium 8.8 (8.4-10.2) mg/dL Current Medications Generic Name Dose Route Start Last Admin Trade Name Cesarq PRN Reason Stop Dose Admin Furosemide 40 mg 03/13/24 06:00 03/13/24 06:54 Furosemide 10 Mg/Ml 4 Ml Vial IV 40 mg Q8H VADIM Administration Intake and Output 03/12/24 03/13/24 03/13/24 22:59 06:59 14:59 Other: Weight 74.843 kg 03/12/24 18:19 03/12/24 18:19
[2024-03-13] MEDS: IPRATROPIUM-ALBUTEROL 3 ML NEB INHALATION SCH (11:54)
[2024-03-13] MEDS: methylPREDNISolone SOD SUCCI 40 MG/ML 1 ML VIAL IV STA (14:38)
--- NOTE | 2024-03-13 15:19 | P.HPIM ---
History of Present Illness History of present illness; 64-year-old female with a past medical history of hypertension, OA, GERD, and COPD (not on oxygen at home) presents with complaints of shortness of breath and increased swelling in the lower extremities. Patient reports for the last few days her shortness of breath has become more significant and at first was unable to tell if this was just secondary to her COPD or if it was something else. Patient reports while having the symptoms of increased shortness of breath she also had significant swelling of the lower extremities, so bad to where she could not fit her feet into her shoes. Reports she has never had the symptoms of lower extremity swelling in the past. Patient reports this time she became worried so decided to come to the emergency room. Initial lab work from the ER was significant for WBC 12.5, hemoglobin 15.2, MCV 103.7, sodium 140 potassium 3.6, bicarb 35, creatinine 0.66, glucose 104, BNP 18,100, troponin 0.036--> 0.03. EKG done in the ER showed heart rate of 82 bpm, no ST segment elevation or depression seen, no T-wave inversions seen. Sinus rhythm with occasional s upraventricular premature complexes, possible left ventricular hypertrophy, and QTc 402 ER CXR: No acute cardiopulmonary disease/process. Patient admitted to internal medicine service REVIEW OF SYSTEMS: CONSTITUTIONAL: No fever, no malaise, no fatigue. HEENT: No recent visual problems or hearing problems. Denied any sore throat. CARDIOVASCULAR: No chest pain, orthopnea, PND, no palpitations, no syncope. PULMONARY: Admits shortness of breath, no cough, no hemoptysis. GASTROINTESTINAL: No diarrhea, no nausea, no vomiting, no abdominal pain. NEUROLOGICAL: No headaches, no weakness, no numbness. HEMATOLOGICAL: Denies any bleeding or petechiae. GENITOURINARY: Denies any burning micturition, frequency, or urgency. MUSCULOSKELETAL/RHEUMATOLOGICAL: Denies any joint pain, or any muscle pain. Admits to swelling of the lower extremities. ENDOCRINE: Denies any polyuria or polydipsia. The rest of the 14-point review of systems is negative. PHYSICAL EXAMINATION: GENERAL: The patient is alert and oriented x3, not in any acute distress. Well developed, well nourished. HEENT: Pupils are round and equally reacting to light. EOMI. No scleral icterus. No conjunctival pallor. Normocephalic, atraumatic. No pharyngeal erythema. No thyromegaly. CARDIOVASCULAR: S1 and S2 present. No murmurs, rubs, or gallops. PULMONARY: Decreased air entry bilaterally ABDOMEN: Soft, nontender, nondistended, normoactive bowel sounds. No palpable organomegaly. MUSCULOSKELETAL: No joint swelling or deformity. EXTREMITIES: No cyanosis, clubbing.Pitting edema up to the mid calf. NEUROLOGICAL: Gross neurological examination did not reveal any focal deficits. SKIN: No rashes. Assessment & Plan: #Acute heart failure, unknown type: BNP 18,000 Pending echo Continue IV Lasix 40 mg every 8 Cardio added losartanhydrochlorothiazide 50-12.5 mg daily Daily weights, strict intake and output, monitor kidney function Cardiology on consult, appreciate further recommendations #Hypertension: Continue home medication #COPD: Continue home medication Gave one-time dose of IV 40 mg Solu-Medrol, and will start prednisone 40 mg p.o. daily tomorrow #GERD: Continue Protonix 40 mg p.o. daily #OA #Former nicotine dependence F: None E: None N: Heart healthy diet A: Normally ambulates unassisted at home DVT ppx: Lovenox 40 SQ daily GI ppx: Protonix 40 mg p.o. daily Dispo: Pending clinical course Jen Osei MD PGY-1 FM Dictation was produced using [employer] dictation software. please excuse any grammatical, word or spelling errors. Past Medical History Past Medical History: GERD/Reflux, Hypertension, Osteoarthritis (OA) Additional Past Medical History / Comment(s): DIABETIC, PATIENT STATES "NOT". POSITIVE FOR LUPUS ANTICOAGULANT and double heterozygous for MTHFR gene mutation. History of Any Multi-Drug Resistant Organisms: None Reported Past Surgical History: Cholecystectomy, Hysterectomy, Orthopedic Surgery Additional Past Surgical History / Comment(s): BILATERAL EYE SURGERY (TIGHTENING OF MUSCLES). LEFT KNEE ARTHO Past Anesthesia/Blood Transfusion Reactions: Postoperative Nausea & Vomiting (PONV) Past Psychological History: No Psychological Hx Reported Smoking Status: Former smoker Past Alcohol Use History: None Reported Past Drug Use History: None Reported - Past Family History Father Family Medical History: No Reported History Additional Family Medical History / Comment(s): Father is healthy Mother Family Medical History: Diabetes Mellitus, Hypertension Medications and Allergies Home Medications Medication Instructions Recorded Confirmed Type Fluticasone Propion/Salmeterol 2 puff INHALATION RT-BID 10/09/20 03/12/24 Histor y [Advair 250-50 Diskus] Acetaminophen/Diphenhydramine 2 tab PO HS 03/12/24 03/12/24 History [Tylenol PM 500-25mg] Ipratropium-Albuterol Nebulize 3 ml INHALATION RT-QID 03/12/24 03/12/24 History [Duoneb 0.5 mg-3 mg/3 ml Soln] Metoprolol Tartrate [Lopressor] 100 mg PO HS 03/12/24 03/12/24 History Allergies Allergy/AdvReac Type Severity Reaction Status Date / Time No Known Allergies Allergy Verified 03/12/24 18:14 Physical Exam Vitals: Vital Signs Temp Pulse Resp BP Pulse Ox 03/13/24 12:58 74 21 105/77 98 03/13/24 12:06 85 03/13/24 11:55 73 03/13/24 11:04 74 21 137/87 99 03/13/24 10:00 80 19 137/78 99 03/13/24 08:51 117/88 03/13/24 08:20 80 18 97 03/13/24 07:57 98.8 F 77 22 141/85 97 03/13/24 06:29 83 18 138/67 96 03/13/24 03:31 95 18 139/83 97 03/13/24 00:00 80 03/12/24 23:00 74 151/96 94 L 03/12/24 22:00 81 19 135/97 95 03/12/24 21:00 80 21 132/103 91 L 03/12/24 19:53 84 20 155/81 88 L 03/12/24 17:31 97.7 F 66 20 162/85 92 L Intake and Output 03/12/24 03/13/24 03/13/24 22:59 06:59 14:59 Other: Weight 74.843 kg Results CBC & Chem 7: 03/12/24 18:19 03/12/24 18:19 Labs: Abnormal Lab Results - Last 24 Hours (Table) 03/12/24 03/12/24 03/13/24 Range/Units 18:19 18:19 08:38 WBC 12.5 H (3.8-10.6) k/uL Hct 48.6 H (34.0-46.0) % MCV 103.7 H (80.0-100.0) fL Neutrophils # 11.0 H (1.3-7.7) k/uL Lymphocytes # 0.8 L (1.0-4.8) k/uL Carbon Dioxide 35 H (22-30) mmol/L Glucose 104 H (74-99) mg/dL Troponin I 0.036 H* (0.000-0.034) ng/mL
[2024-03-13] MEDS: SYMBICORT 80-4.5 MCG INHALER INHALATION SCH (19:36)
[2024-03-13] MEDS: ACETAMINOPHEN TAB 500 MG TAB PO SCH (21:23)
[2024-03-13] MEDS: diphenhydrAMINE 25 MG CAP PO SCH (21:23)
[2024-03-13] MEDS: METOPROLOL TARTRATE 50 MG TAB PO SCH (21:24)
[2024-03-14] MEDS: PANTOPRAZOLE 40 MG TABLET PO SCH (06:17)
[2024-03-14 06:47] LABS: HCT 46.2 % (34.0-46.0); HGB 14.4 gm/dL (11.4-16.0); Hypochromasia Moderate; MCH 32.4 pg (25.0-35.0); MCHC 31.2 g/dL (31.0-37.0); MCV 103.9 fL (80.0-100.0); Macrocytosis Slight; Mean Platelet Volume 7.4; Platelet Count 166 k/uL (150-450); RBC 4.45 m/uL (3.80-5.40); RDW 13.4 % (11.5-15.5); WBC 13.8 k/uL (3.8-10.6)
[2024-03-14 07:00] LABS: African American GFR (CKD) >90 (>60 ml/min/1.73 sqM); Blood Urea Nitrogen 16 mg/dL (7-17); Calcium 8.9 mg/dL (8.4-10.2); Chloride 90 mmol/L (98-107); Glucose 109 mg/dL (74-99); Non-African American GFR(CKD) >90 (>60 ml/min/1.73 sqM); Potassium 4.8 mmol/L (3.5-5.1); Sodium 137 mmol/L (137-145)
[2024-03-14 07:08] LABS: Anion Gap 8 mmol/L
[2024-03-14 07:21] LABS: Carbon Dioxide 39 mmol/L (22-30)
[2024-03-14] MEDS: predniSONE 20 MG TAB PO SCH (09:31)
[2024-03-14] MEDS: ENOXAPARIN 40 MG/0.4 ML SYRINGE SQ SCH (09:31)
--- NOTE | 2024-03-14 10:04 | CA ---
Transthoracic Echo Report Name: Uzma Baron Age: 64 Gender: F : 1960 Exam Date: 03/13/2024 15:19 Exam Location: [facility] Ht (in): 67 Wt (lb): 165 Ordering Physician: Linda Toussaint Attending/Referring Phys: [id number], Breana Mechanical Systems Designer Felisa Kruger, YESENIA Procedure CPT: Indications: CHF, lv function Cardiac Hx: Technical Quality: Fair Contrast 1: Total Dose (mL): Contrast 2: Total Dose (mL): MEASUREMENTS (Male / Female) Normal Values 2D ECHO LV Diastolic Diameter PLAX 5.2 cm 4.2 - 5.9 / 3.9 - 5.3 cm LV Systolic Diameter PLAX 2.7 cm IVS Diastolic Thickness 0.9 cm 0.6 - 1.0 / 0.6 - 0.9 cm LVPW Diastolic Thickness 0.9 cm 0.6 - 1.0 / 0.6 - 0.9 cm LV Relative Wall Thickness 0.3 RV Internal Dim ED PLAX 4.3 cm LA Systolic Diameter LX 4.9 cm 3.0 - 4.0 / 2.7 - 3.8 cm LV Diastolic Volume MOD BP 48.2 cm??? 67 - 155 / 56 - 104 cm??? LV Systolic Volume MOD BP 12.8 cm??? - / 19 - 49 cm??? LV Ejection Fraction MOD BP 73.4 % >= 55 % LV Cardiac Index MOD BP 1740.1 cm???/min???m??? LV Diastolic Volume MOD 4C 54.4 cm??? LV Systolic Volume MOD 4C 12.7 cm??? LV Ejection Fraction MOD 4C 76.7 % LV Cardiac Index MOD 4C 2050.6 cm???/min???m??? LV Diastolic Length 4C 7.0 cm LV Systolic Length 4C 6.0 cm LV Diastolic Volume MOD 2C 37.5 cm??? LV Systolic Volume MOD 2C 11.4 cm??? LV Ejection Fraction MOD 2C 69.5 % LV Cardiac Index MOD 2C 1281.0 cm???/min???m??? LV Diastolic Length 2C 6.1 cm LV Systolic Length 2C 5.0 cm LA Volume 47.3 cm??? 18 - 58 / 22 - 52 cm??? LA Volume Index 25.0 cm???/m??? 16 - 28 cm???/m??? M-MODE Aortic Root Diameter MM 2.9 cm LA Systolic Diameter MM 3.1 cm LA Ao Ratio MM 1.1 AV Cusp Separation MM 1.2 cm DOPPLER AV Peak Velocity 175.7 cm/s AV Peak Gradient 12.3 mmHg MV Area PHT 2.9 cm??? Mitral E Point Velocity 57.8 cm/s Mitral A Point Velocity 123.5 cm/s Mitral E to A Ratio 0.5 MV Deceleration Time 261.5 ms TR Peak Velocity 403.0 cm/s TR Peak Gradient 65.0 mmHg Right Ventricular Systolic Press 79.4 mmHg FINDINGS Left Ventricle Left ventricular ejection fraction is estimated at 55-60 %. Left ventricular cavity size normal. Left ventricular wall thickness normal. No obvious regional wall motion abnormalities. Right Ventricle Severe right ventricular dilatation. Severely reduced right ventricular global systolic function. Severe pulmonary hypertension. Right ventricular systolic pressure estimated at 79 mm hg. Right Atrium Severe right atrial dilatation. Left Atrium Severely increased left atrial diameter. Mitral Valve Structurally normal mitral valve. Mild mitral regurgitation. No mitral stenosis. Aortic Valve Trileaflet aortic valve. No aortic valve stenosis or regurgitation. Tricuspid Valve Annular dilatation of the tricuspid valve. [id number] tricuspid regurgitation. No tricuspid stenosis. Pulmonic Valve Structurally normal pulmonic valve. Trace pulmonic regurgitation. No pulmonic stenosis. Pericardium Small pericardial effusion. Pericardial effusion located posteriorly. Aorta Normal size aortic root and proximal ascending aorta. CONCLUSIONS Normal LV function Severe right ventricular dilatation RV systolic dysfunction with severe pulmonary hypertension Biatrial enlargement Mild to moderate tricuspid regurgitation Mild mitral regurgitation Small pericardial effusion posteriorly Previewed by: Dr. Bebeto Harper MD (Electronically Signed) Final Date: 14 March 2024 10:03
[2024-03-14 11:35] VITALS: BMI 25.3
--- NOTE | 2024-03-14 11:57 | P.PN ---
Subjective HISTORY OF PRESENT ILLNESS: This is a 64-year-old female with a past medical history significant for hypertension, COPD and former nicotine dependence. Patient does not follow with a internal control specialist. We have been asked to see the patient in consultation for heart failure. Patient examined at the bedside in the emergency room. Patient presented to the hospital with a chief complaint of swelling to her legs. She states for the past few days she has noticed swelling of both of her legs and weeping. She also reports that her feet felt cold to the touch. She denied having any weight gain at home. She denies any chest pain or pressure. Denies any shortness of breath. She does report feeling dizzy at times. She states that her granddaughter was sick last week and she did catch a upper respiratory infection from her. She does report having a cough still from her recent illness. DIAGNOSTICS: - EKG reveals sinus mechanism with nonspecific ST-T wave changes - Chest xray negative for acute process - Laboratory data: WBC 12.5. Hemoglobin 15.2. Platelet count 191. Sodium 140. Potassium 3.6. BUN 17. Creatinine 0.66. proBNP 18,100. - Current home cardiac medications include metoprolol tartrate 100 mg at night 03/14/2024 Patient examined this morning at bedside. Patient currently denies chest pain or pressure. She denies shortness of breath. She continues to have significant lower extremity although improving. Patient also has erythema to bilateral lower extremities. Echocardiogram completed revealing ejection fraction 55 to 60%, severe pulmonary hypertension, mild to moderate TR, mild mitral regurgitation, and small pericardial effusion PHYSICAL EXAM: VITAL SIGNS: Reviewed. GENERAL: Well-developed in no acute distress. HEENT: Head is normocephalic. Pupils are equal, round. Sclerae anicteric. Mucous membranes of the mouth are moist. Neck supple. No JVD or thyromegaly LUNGS: Respirations even and unlabored. Lungs very diminished bilaterally HEART: Regular rate and rhythm. S1 and S2 heard. ABDOMEN: Soft. Nondistended. Nontender. EXTREMITIES: Normal range of motion. No clubbing or cyanosis. Peripheral pulses intact. 2+ bilateral pitting lower extremity edema with erythema noted NEUROLOGIC: Awake and alert. Oriented x 3. ASSESSMENT: Acute heart failure with preserved EF, 55 to 60% Minimally elevated troponin, type II AL, secondary to oxygen supply/demand mismatch due to CHF Hypertension COPD Former nicotine dependence Severe pulmonary hypertension Possible cellulitis of bilateral lower extremities PLAN: Continue current dose of IV Lasix Daily weights, accurate intake and output, and monitoring of kidney function Continue additional cardiac medications Patient with erythema to bilateral lower extremities. Recommend evaluation by internal medicine to determine if patient requires antibiotics for possible cellulitis. Further recommendations pending patient course Nurse practitioner note has been reviewed by physician. Signing provider agrees with the documented findings, assessment, and plan of care documented by BUSINESS TRANSFORMATION ANALYST as a scribe. Objective - Vital Signs Vital signs: Vital Signs Temp 98.3 F 03/14/24 11:23 Pulse 78 03/14/24 11:43 Resp 17 03/14/24 11:35 BP 124/68 03/14/24 11:23 Pulse Ox 94 L 03/14/24 11:23 FiO2 Intake & Output 03/13/24 03/14/24 03/14/24 18:59 06:59 18:59 Output Total 200 1300 Balance -200 -1300 Weight 73.4 kg 73.4 kg Output: Urine 200 1300 Other: Voiding Method Toilet Toilet Bedside Commode Bedside Commode - Labs CBC & Chem 7: 03/14/24 05:40 03/14/24 05:40 Labs: Abnormal Lab Results - Last 24 Hours (Table) 03/14/24 03/14/24 Range/Units 05:40 05:40 WBC 13.8 H (3.8-10.6) k/uL Hct 46.2 H (34.0-46.0) % MCV 103.9 H (80.0-100.0) fL Chloride 90 L (98-107) mmol/L Carbon Dioxide 39 H (22-30) mmol/L Glucose 109 H (74-99) mg/dL
--- NOTE | 2024-03-14 12:38 | P.PN ---
Subjective Progress Note Date: 03/14/24 Hospital course: History of present illness; 64-year-old female with a past medical history of hypertension, OA, GERD, and COPD (not on oxygen at home) presents with complaints of shortness of breath and increased swelling in the lower extremities. Patient reports for the last few days her shortness of breath has become more significant and at first was unable to tell if this was just secondary to her COPD or if it was something else. Patient reports while having the symptoms of increased shortness of breath she also had significant swelling of the lower extremities, so bad to where she could not fit her feet into her shoes. Reports she has never had the symptoms of lower extremity swelling in the past. Patient reports this time she became worried so decided to come to the emergency room. Initial lab work from the ER was significant for WBC 12.5, hemoglobin 15.2, MCV 103.7, sodium 140 potassium 3.6, bicarb 35, creatinine 0.66, glucose 104, BNP 18,100, troponin 0.036--> 0.03. EKG done in the ER showed heart rate of 82 bpm, no ST segment elevation or depr ession seen, no T-wave inversions seen. Sinus rhythm with occasional supraventricular premature complexes, possible left ventricular hypertrophy, and QTc 402 ER CXR: No acute cardiopulmonary disease/process. Patient admitted to internal medicine service. REVIEW OF SYSTEMS: CONSTITUTIONAL: No fever, no malaise, no fatigue. HEENT: No recent visual problems or hearing problems. Denied any sore throat. CARDIOVASCULAR: No chest pain, orthopnea, PND, no palpitations, no syncope. PULMONARY: Admits shortness of breath, no cough, no hemoptysis. GASTROINTESTINAL: No diarrhea, no nausea, no vomiting, no abdominal pain. NEUROLOGICAL: No headaches, no weakness, no numbness. HEMATOLOGICAL: Denies any bleeding or petechiae. GENITOURINARY: Denies any burning micturition, frequency, or urgency. MUSCULOSKELETAL/RHEUMATOLOGICAL: Denies any joint pain, or any muscle pain. Admits to swelling of the lower extremities. ENDOCRINE: Denies any polyuria or polydipsia. The rest of the 14-point review of systems is negative. 03/14/2024: [Patient seen and examined at bedside. No acute events overnight. Patient states swelling has improved. Echocardiogram show left ventricular ejection fraction of 55-60%, normal LV function, severe right ventricular dilatation RV systolic dysfunction with severe, pulmonary hypertension. Pertinent positives and negatives as discussed above, a complete review of systems was performed and all other systems are negative. Vitals: Signs Reviewed Physical Exam: General: nontoxic, no distress, appears at stated age Derm: warm, dry, intact Head: atraumatic, normocephalic, symmetric Eyes: EOMI, anicteric sclera Mouth: no lip lesion, mucus membranes moist Cardiovascular: S1 S2 reg, no murmur, rubs, or gallops Lungs: CTA bilateral, no rhonchi, no rales, no accessory muscle use Abdominal: soft, non-tender to palpataion, no appreciable organomegaly Extremities: no gross muscle atrophy, no edema, no contractures, erythema bilateral lower extremity Neuro: Alert, Oriented, CNII-XII grossly intact, gait normal Psych: well appearing, appropriate affect Data Received Today: Pertinent Labs: WBC 13.8, Hgb 14.4, CO2 39, glucose 109 Imaging: Echocardiogram show left ventricular ejection fraction of 55-60%, normal LV function, severe right ventricular dilatation RV systolic dysfunction with severe, pulmonary hypertension Assessment and Plan: #. Acute heart failure, unknown type: BNP 18,000 Pending echo Continue IV Lasix 40 mg every 8 Switched losartanhydrochlorothiazide 50-12.5 mg daily to losartan 50 mg daily Daily weights, strict intake and output, monitor kidney function Cardiology on consult, note read. Continue with IV Lasix, intake and output, monitor renal function #. Hypertension: Continue home medication #. COPD: Continue home medication Gave one-time dose of IV 40 mg Solu-Medrol, and will start prednisone 40 mg p.o. daily tomorrow #. GERD: Continue Protonix 40 mg p.o. daily #. OA #. Former nicotine dependence F: None E: None N: Heart healthy diet A: Normally ambulates unassisted at home DVT ppx: Lovenox 40 SQ daily GI ppx: Protonix 40 mg p.o. daily Dispo: Pending clinical course Objective - Vital Signs Vital signs: Vital Signs Temp 98.3 F 03/14/24 11:23 Pulse 60 03/14/24 11:35 Resp 17 03/14/24 11:35 BP 124/68 03/14/24 11:23 Pulse Ox 94 L 03/14/24 11:23 FiO2 Intake & Output 03/13/24 03/14/24 03/14/24 18:59 06:59 18:59 Output Total 200 1300 Balance -200 -1300 Weight 73.4 kg 73.4 kg Output: Urine 200 1300 Other: Voiding Method Toilet Toilet Bedside Commode Bedside Commode - Labs CBC & Chem 7: 03/14/24 05:40 03/14/24 05:40 Labs: Abnormal Lab Results - Last 24 Hours (Table) 03/14/24 03/14/24 Range/Units 05:40 05:40 WBC 13.8 H (3.8-10.6) k/uL Hct 46.2 H (34.0-46.0) % MCV 103.9 H (80.0-100.0) fL Chloride 90 L (98-107) mmol/L Carbon Dioxide 39 H (22-30) mmol/L Glucose 109 H (74-99) mg/dL
[2024-03-15 07:51] VITALS: RESP 18
[2024-03-15] MEDS: LOSARTAN 50 MG TAB PO SCH (09:04)
[2024-03-15] MEDS: FUROSEMIDE 40 MG TAB PO SCH (09:04)
--- NOTE | 2024-03-15 11:21 | P.PN ---
Subjective HISTORY OF PRESENT ILLNESS: This is a 64-year-old female with a past medical history significant for hypertension, COPD and former nicotine dependence. Patient does not follow with a field pipelines supervisor. We have been asked to see the patient in consultation for heart failure. Patient examined at the bedside in the emergency room. Patient presented to the hospital with a chief complaint of swelling to her legs. She states for the past few days she has noticed swelling of both of her legs and weeping. She also reports that her feet felt cold to the touch. She denied having any weight gain at home. She denies any chest pain or pressure. Denies any shortness of breath. She does report feeling dizzy at times. She states that her granddaughter was sick last week and she did catch a upper respiratory infection from her. She does report having a cough still from her recent illness. DIAGNOSTICS: - EKG reveals sinus mechanism with nonspecific ST-T wave changes - Chest xray negative for acute process - Laboratory data: WBC 12.5. Hemoglobin 15.2. Platelet count 191. Sodium 140. Potassium 3.6. BUN 17. Creatinine 0.66. proBNP 18,100. - Current home cardiac medications include metoprolol tartrate 100 mg at night 03/14/2024 Patient examined this morning at bedside. Patient currently denies chest pain or pressure. She denies shortness of breath. She continues to have significant lower extremity although improving. Patient also has erythema to bilateral lower extremities. Echocardiogram completed revealing ejection fraction 55 to 60%, severe pulmonary hypertension, mild to moderate TR, mild mitral regurgitation, and small pericardial effusion 03/15/2024 Patient examined this morning at the bedside. Patient currently denies chest pain or pressure. She denies shortness of breath. Patient's lower extremity edema has significantly improved along with her redness. PHYSICAL EXAM: VITAL SIGNS: Reviewed. GENERAL: Well-developed in no acute distress. HEENT: Head is normocephalic. Pupils are equal, round. Sclerae anicteric. Mucous membranes of the mouth are moist. Neck supple. No JVD or thyromegaly LUNGS: Respirations even and unlabored. Lungs clear bilaterally HEART: Regular rate and rhythm. S1 and S2 heard. ABDOMEN: Soft. Nondistended. Nontender. EXTREMITIES: Normal range of motion. No clubbing or cyanosis. Peripheral pulses intact. Trace bilateral lower extremity edema. Minimal erythema noted. NEUROLOGIC: Awake and alert. Oriented x 3. ASSESSMENT: Acute heart failure with preserved EF, 55 to 60% Minimally elevated troponin, type II NV, secondary to oxygen supply/demand mismatch due to CHF Hypertension COPD Former nicotine dependence Severe pulmonary hypertension Possible cellulitis of bilateral lower extremities, unlikely as resolving this morning PLAN: Discontinue IV Lasix. Begin oral Lasix 40 mg twice a day Patient was started on losartanhydrochlorothiazide. However internal medicine discontinued hydrochlorothiazide. Continue additional cardiac medications Patient may be discharged home today from a cardiac standpoint Patient to follow-up postdischarge with Dr. Berumen Nurse practitioner note has been reviewed by physician. Signing provider agrees with the documented findings, assessment, and plan of care documented by GLOBAL CLINICAL LEADER as a scribe. Objective - Vital Signs Vital signs: Vital Signs Temp 97.7 F 03/15/24 10:47 Pulse 75 03/15/24 10:47 Resp 18 03/15/24 10:47 BP 108/72 03/15/24 10:47 Pulse Ox 95 03/15/24 10:47 FiO2 Intake & Output 03/14/24 03/15/24 03/15/24 18:59 06:59 18:59 Intake Total 320 180 Output Total 2800 1200 900 Balance -2480 -1200 -720 Weight 73.4 kg 70.5 kg Intake: Oral 320 180 Output: Urine 2800 1200 900 Other: Voiding Method Toilet Toilet Bedside Commode Bedside Commode Bedside Commode - Labs CBC & Chem 7: 03/14/24 05:40 03/14/24 05:40
[2024-03-15 16:02] VITALS: BP 101/62; TEMP 97.6
[2024-03-15 16:09] VITALS: PULSE 75
--- NOTE | 2024-03-15 17:29 | P.DS ---
Providers Date of admission: 03/12/24 18:58 Attending physician: Celestino Adamson Consults: 03/12/24 18:58 Consult Physician Routine Consulting Provider: Robert Doyle Consult Reason/Comments: suspect heart failure Do you want consulting provider notified?: Yes Primary care physician: Rui Baptiste Hospital Course: Discharge Diagnosis: Acute heart failure, likely diastolic Hypertension COPD GERD OA Former nicotine dependence Hospital Course: History of present illness; 64-year-old female with a past medical history of hypertension, OA, GERD, and COPD (not on oxygen at home) presents with complaints of shortness of breath and increased swelling in the lower extremities. Patient reports for the last few days her shortness of breath has become more significant and at first was unable to tell if this was just secondary to her COPD or if it was something else. Patient reports while having the symptoms of increased shortness of breath she also had significant swelling of the lower extremities, so bad to where she could not fit her feet into her shoes. Reports she has never had the symptoms of lower extremity swelling in the past. Patient reports this time she became worried so decided to come to the emergency room. Initial lab work from the ER was significant for WBC 12.5, hemoglobin 15.2, MCV 103.7, sodium 140 potassium 3.6, bicarb 35, creatinine 0.66, glucose 104, BNP 18,100, troponin 0.036--> 0.03. EKG done in the ER showed heart rate of 82 bpm, no ST segment elevation or depression seen, no T-wave inversions seen. Sinus rhythm with occasional supraventricular premature complexes, possible left ventricular hypertrophy, and QTc 402 ER CXR: No acute cardiopulmonary disease/process. Patient admitted to internal medicine service. REVIEW OF SYSTEMS: CONSTITUTIONAL: No fever, no malaise, no fatigue. HEENT: No recent visual problems or hearing problems. Denied any sore throat. CARDIOVASCULAR: No chest pain, orthopnea, PND, no palpitations, no syncope. PULMONARY: Admits shortness of breath, no cough, no hemoptysis. GASTROINTESTINAL: No diarrhea, no nausea, no vomiting, no abdominal pain. NEUROLOGICAL: No headaches, no weakness, no numbness. HEMATOLOGICAL: Denies any bleeding or petechiae. GENITOURINARY: Denies any burning micturition, frequency, or urgency. MUSCULOSKELETAL/RHEUMATOLOGICAL: Denies any joint pain, or any muscle pain. Admits to swelling of the lower extremities. ENDOCRINE: Denies any polyuria or polydipsia. The rest of the 14-point review of systems is negative. 03/14/2024: [Patient seen and examined at bedside. No acute events overnight. Patient states swelling has improved. Echocardiogram show left ventricular ejection fraction of 55-60%, normal LV function, severe right ventricular dilatation RV systolic dysfunction with severe, pulmonary hypertension. While admitted to the hospital patient received Lasix 40 mg IV twice daily and was placed on losartan 50 mg p.o. daily. While on these medications the patient's shortness of breath and lower extremity swelling improved immensely. On day of discharge patient's IV Lasix was converted to p.o. for which she will be discharged on as well as starting losartan 25 mg p.o. daily. Patient will also continue her other cardiac medications. Patient was cleared by cardiology from a cardiac standpoint. Patient is hemodynamically medically cleared for discharge to home. Patient is advised to follow-up with her PCP and publicity director. Pt seen and examined at bedside: Patient seen resting comfortably in bed excited at the prospect of going home. Vital signs reveiwed and stable: General: non toxic, no distress, appears at stated age, normal weight Derm: no unusual rashes/lesions, warm Head: atraumatic, normocephalic, symmetric Eyes: EOMI, no lid lag, anicteric sclera, pupils equal round reactive to light ENT: Nose and ears atraumatic Neck: No cervical lymphadenopathy, trachea midline, supple Mouth: no lip lesion, mucus membranes moist Cardiovascular: S1S2 reg, no murmur, positive dorsalis pedis pulse bilateral, no edema Lungs: Decreased air entry bilaterally, no rhonchi, no rales, no accessory muscle use Abdominal: soft, nontender to palpation, no guarding Ext: muscle strength 5 out of 5 in all 4 extremities grossly, no gross muscle atrophy, no contractures, Neuro: CN II-XI grossly intact, no gross focal neuro deficits Psych: Alert, oriented, appropriate affect A total of greater than 30 minutes were spent preparing this complex discarge summary. Patient was discharged on 03/15/2024, 17: 26. Patient Condition at Discharge: Fair Plan - Discharge Summary Discharge Rx Participant: No New Discharge Prescriptions: New Furosemide [Lasix] 40 mg PO BID@0900,1600 #120 tab Losartan [Cozaar] 25 mg PO DAILY #60 tab Continue Fluticasone Propion/Salmeterol [Advair 250-50 Diskus] 2 puff INHALATION RT- BID Metoprolol Tartrate [Lopressor] 100 mg PO HS Acetaminophen/Diphenhydramine [Tylenol PM 500-25mg] 2 tab PO HS Ipratropium-Albuterol Nebulize [Duoneb 0.5 mg-3 mg/3 ml Soln] 3 ml INHALATION RT-QID Discharge Medication List Fluticasone Propion/Salmeterol [Advair 250-50 Diskus] 2 puff INHALATION RT-BID 10/09/20 [History] Acetaminophen/Diphenhydramine [Tylenol PM 500-25mg] 2 tab PO HS 03/12/24 [History] Ipratropium-Albuterol Nebulize [Duoneb 0.5 mg-3 mg/3 ml Soln] 3 ml INHALATION RT-QID 03/12/24 [History] Metoprolol Tartrate [Lopressor] 100 mg PO HS 03/12/24 [History] Furosemide [Lasix] 40 mg PO BID@0900,1600 #120 tab 03/15/24 [Rx] Losartan [Cozaar] 25 mg PO DAILY #60 tab 03/15/24 [Rx] Follow up Appointment(s)/Referral(s): Rui Baptiste DO [Primary Care Provider] - 1-2 days Lowell Berumen MD [STAFF PHYSICIAN] - 1 Week Discharge Disposition: HOME SELF-CARE
== END 2024-03-15 18:56 | disposition home or self-care (01) ==
LOC: EC 17:24 → 3SCARD 18:58
PROVIDERS: ADMIT Hospitalist; ATTEND Hospitalist
DX: I11.0 Hypertensive heart disease with heart failure (principal); I50.31 Acute diastolic (congestive) heart failure; R79.89 Other specified abnormal findings of blood chemistry; J44.9 Chronic obstructive pulmonary disease, unspecified; K21.9 Gastro-esophageal reflux disease without esophagitis; M19.90 Unspecified osteoarthritis, unspecified site; E11.9 Type 2 diabetes mellitus without complications; I27.20 Pulmonary hypertension, unspecified; Z87.891 Personal history of nicotine dependence; Z79.51 Long term (current) use of inhaled steroids; Z79.899 Other long term (current) drug therapy
CPT/HCPCS: 96376 ×4; 96374; 96375; 99285; 36415; 94640 ×6; 94760 ×2; 93005; 93306; 83880; 80048 ×2; 84484; 85025; 85027; 71046; G0378 ×4; J1940 ×4; J7512 ×2; J2919

== ENCOUNTER → 2024-08-02 | Outpatient (CLI) | payer OTHER ==
--- NOTE | 2024-08-02 15:26 | CT ---
EXAMINATION TYPE: CT angio chest CT DLP: 191.8 mGycm, Automated exposure control for dose reduction was used. DATE OF EXAM: 08/02/2024 2:43 PM COMPARISON: Chest radiograph 07/31/2024 CLINICAL INDICATION:Female, 64 years old with history of I27.24 CHOM THROMB PULM HTN; SOB, HTN TECHNIQUE/CONTRAST: CTA scan of the thorax is performed with IV Contrast, patient injected with 100 ml mL of Isovue 370, pulmonary embolism protocol. MIP images are created and reviewed. FINDINGS: Pulmonary Artery: There is no evidence for a filling defect within the pulmonary vasculature to sugge st acute pulmonary embolism. The pulmonary artery is dilated measuring up to 3.5 cm. Lungs/Pleura: No evidence of focal consolidation, pleural effusion or pneumothorax. Advance centrilob ular emphysematous changes. Calcified granulomas within the left lower lobe. No suspicious pulmonary nodule or mass. Airway: Large airways are patent. Heart: Size within normal limits.No pericardial effusion. Mild to moderate coronary artery calcificat ions present. Vasculature: No evidence of aortic aneurysm. Mild atherosclerotic calcification of the aorta and its branches. Mediastinum: No evidence of adenopathy. Musculoskeletal: No acute osseous abnormalities . Chronic anterior wedge compression deformity of the T12 vertebral body with approximately 20% height loss and no retropulsion. Probable Schmorl's node i nvolving the inferior endplate of the L1 vertebral body. Large anterior osteophyte at T10-T11. Soft Tissues: Unremarkable. Lower neck: No significant findings. Upper Abdomen: Gallbladder is surgically absent. Right adrenal gland 2.1 cm nodule with a Hounsfield unit of 5 consistent with a lipid rich adenoma. Small hiatal hernia. IMPRESSION: 1. No evidence of pulmonary embolism. 2. Dilated main pulmonary artery suggesting pulmonary arterial hypertension. 3. Advanced COPD changes. 4. Right adrenal gland 2.1 cm benign lipid rich adenoma. 5. Chronic appearing and wedge compression deformity of the T12 vertebral body. 6. Small hiatal hernia. [facility], , 08/02/2024 3:23 PM
== END | disposition home or self-care (01) ==
LOC: RADCTMAIN 13:57
PROVIDERS: ATTEND Internal Medicine
DX: D35.01 Benign neoplasm of right adrenal gland (principal); K44.9 Diaphragmatic hernia without obstruction or gangrene; I27.24 Chronic thromboembolic pulmonary hypertension; J44.9 Chronic obstructive pulmonary disease, unspecified; M48.54XA Collapsed vertebra, not elsewhere classified, thoracic region, initial encounter for fracture
CPT/HCPCS: 71275; Q9967

== ENCOUNTER → 2024-09-07 | Outpatient (CLI) | payer OTHER ==
--- NOTE | 2024-09-07 16:49 | CA ---
Transthoracic Echo Report Name: Uzma Baron Age: 64 Gender: F : 1960 Exam Date: 09/07/2024 13:06 Exam Location: [place] [facility] Ht (in): 67 Wt (lb): 149 Ordering Physician: Iban Martin MD Attending/Referring Phys: Iban Martin MD Panel Monitor Felisa Kruger, RD Procedure CPT: Indications: I27.23 PULMONARY HYPERTENSION DUE TO LUNG DISEASES Cardiac Hx: Technical Quality: Fair Contrast 1: Total Dose (mL): Contrast 2: Total Dose (mL): MEASUREMENTS (Male / Female) Normal Values 2D ECHO LV Diastolic Diameter PLAX 5.2 cm 4.2 - 5.9 / 3.9 - 5.3 cm LV Systolic Diameter PLAX 3.0 cm IVS Diastolic Thickness 1.1 cm 0.6 - 1.0 / 0.6 - 0.9 cm LVPW Diastolic Thickness 1.3 cm 0.6 - 1.0 / 0.6 - 0.9 cm LV Relative Wall Thickness 0.5 RV Internal Dim ED PLAX 1.9 cm LA Systolic Diameter LX 4.7 cm 3.0 - 4.0 / 2.7 - 3.8 cm LV Diastolic Volume MOD BP 68.4 cm??? 67 - 155 / 56 - 104 cm??? LV Systolic Volume MOD BP 24.1 cm??? 22 - 58 / 19 - 49 cm??? LV Ejection Fraction MOD BP 64.7 % >= 55 % LV Cardiac Index MOD BP 1432.7 cm???/min???m??? LV Diastolic Volume MOD 4C 70.7 cm??? LV Systolic Volume MOD 4C 20.5 cm??? LV Ejection Fraction MOD 4C 70.9 % LV Cardiac Index MOD 4C 1622.4 cm???/min???m??? LV Diastolic Length 4C 6.7 cm LV Systolic Length 4C 5.5 cm LV Diastolic Volume MOD 2C 61.1 cm??? LV Systolic Volume MOD 2C 26.5 cm??? LV Ejection Fraction MOD 2C 56.6 % LV Cardiac Index MOD 2C 1118.4 cm???/min???m??? LV Diastolic Length 2C 6.2 cm LV Systolic Length 2C 5.0 cm LA Volume 61.4 cm??? 18 - 58 / 22 - 52 cm??? LA Volume Index 34.3 cm???/m??? 16 - 28 cm???/m??? M-MODE Aortic Root Diameter MM 2.7 cm LA Systolic Diameter MM 4.2 cm LA Ao Ratio MM 1.5 AV Cusp Separation MM 1.7 cm DOPPLER MV Area PHT 2.2 cm??? Mitral E Point Velocity 74.0 cm/s Mitral A Point Velocity 150.5 cm/s Mitral E to A Ratio 0.5 MV Deceleration Time 346.9 ms TR Peak Velocity 359.5 cm/s TR Peak Gradient 73.0 mmHg Right Ventricular Systolic Press 78.0 mmHg FINDINGS Left Ventricle Left ventricular ejection fraction is estimated at 55-60 %. Normal left ventricular systolic function with no obvious regional wall motion abnormalities. Left ventricular cavity size normal. Mildly increased left ventricular wall thickness. Right Ventricle Moderate right ventricular dilatation. Generalized right ventricular hypokinesis. Severe pulmonary hypertension. Right ventricular systolic pressure estimated at 78 mmHg. Right Atrium Moderate right atrial dilatation. Left Atrium Moderately increased left atrial diameter. Mildly increased left atrial volume. Mitral Valve Structurally normal mitral valve. mild mitral regurgitation. No mitral stenosis.mitral annular calcification. Aortic Valve Trileaflet aortic valve. No aortic valve stenosis or regurgitation. Tricuspid Valve Structurally normal tricuspid valve. mild to moderate tricuspid regurgitation. No tricuspid stenosis. Pulmonic Valve Pulmonic valve not well visualized. . No pulmonic stenosis. Pericardium No pericardial or pleural effusion. Aorta Normal size aortic root and proximal ascending aorta. CONCLUSIONS 1. Normal left ventricular size and systolic function 2. Dilated right ventricle with global hypokinesis and severe pulmonary hypertension 3. Mild mitral regurgitation 4. Mild to moderate tricuspid regurgitation Previewed by: Dr. Mahogany Swanson MD (Electronically Signed) Final Date: 07 September 2024 16:48
== END | disposition home or self-care (01) ==
LOC: RADECHMAIN 12:48
PROVIDERS: ATTEND Internal Medicine
DX: I27.23 Pulmonary hypertension due to lung diseases and hypoxia (principal); I27.20 Pulmonary hypertension, unspecified; I08.1 Rheumatic disorders of both mitral and tricuspid valves
CPT/HCPCS: 93306